=== PATIENT | male | born 1950 | race Caucasian/White ===

== ENCOUNTER 2023-07-09 09:57 | Inpatient (IN) | payer MEDICARE, MEDICAID, SELFPAY ==
[2023-07-09] VITALS (11 sets, daily range): BP systolic 85–113; BP diastolic 45–76; BMI 21.6; BMI 19.0
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
[2023-07-09] MEDS: NSS 1000 IV (07:20)
[2023-07-09] MEDS: DUONEB 3 ML INH ×4 (07:21→19:33)
[2023-07-09 07:32] LABS: % Basophils 0.4 % (0-2); % Eosinophils 2.8 % (0-6); % Immature Granulocytes 0.6 % (0-0.5); % Lymphocytes 14.2 % (20.5-51.1); % Monocytes 15.5 % (1.7-9.3); % Neutrophils 66.5 % (42.2-75.2); Absolute Eosinophils 0.2 10^3/uL (0-0.7); Absolute Monocytes 1.1 10^3/uL (0.1-0.6); Absolute Neutrophils 4.7 10^3/uL (1.4-6.5); Hematocrit 34.6 % (39.0-52.0); Hemoglobin 11.7 g/dL (13.0-18.0); Mean Corp Hgb Conc. 33.8 g/dL (33.0-37.0); Mean Corpuscular Hgb 29.1 pg (27.0-31.0); Mean Corpuscular Volume 86.1 fL (80.0-94.0); Mean Platelet Volume 9.2 fL (7.4-10.4); Nucleated Red Blood Cells % 0 % (-); Platelet Count 319 10^3/uL (130-400); Red Blood Cell Count 4.02 10^6/uL (4.70-6.10); Red Cell Dist. Width 14.6 % (11.5-14.5); White Blood Cell Count 7.1 10^3/uL (4.8-10.8)
[2023-07-09 07:44] LABS: Lactic Acid 0.8 mmol/L (0.7-2.0)
[2023-07-09 07:46] LABS: ALT (SGPT) 91 U/L (0-50); AST (SGOT) 60 U/L (17-59); Albumin 3.2 g/dl (3.5-5.0); Alkaline Phosphatase 405 U/L (38-126); Blood Urea Nitrogen 18 mg/dl (9-20); Calcium 8.6 mg/dl (8.4-10.2); Carbon Dioxide 27 mmol/L (22-30); Chloride 101 mmol/L (98-107); Estimated Creatinine Clearance 76 ml/min; Glucose 94 mg/dl (70-99); Sodium 133 mmol/L (135-145); Total Bilirubin 0.6 mg/dl (0.2-1.3); eGFR > 60.00
[2023-07-09 07:49] LABS: COVID-19 Antigen Negative (Negative)
[2023-07-09 08:13] LABS: Urine Albumin Trace (Neg - Trace); Urine Bilirubin Negative (Negative); Urine Character Clear (Clear); Urine Color Amber; Urine Glucose Negative (Negative); Urine Ketone Negative (Negative); Urine Leukocyte Negative (Negative); Urine Nitrite Negative (Negative); Urine Occult Blood Negative (Negative); Urine Specific Gravity 1.015 (<1.030); Urine Urobilinogen 1+ (Neg - 1+)
[2023-07-09] MEDS: MAXIPIME 1000 MG IV (08:43)
--- NOTE | 2023-07-09 08:59 | HPS.HSE ---
Family Physician
-
Family Physician: Efrem Hernandez
Chief Complaint
-
fevers
History of Present Illness
Ms. Neftaly Robertson is a 72 yo man with hx TBI and seizure disorder, cognitive impairment, COPD, hx rib fracture with complication PTX s/p thoracoscopy and minithoracotomy presents from [facility] to ER with fever and low blood pressure.
Patient currently states that his breathing is Okay after receiving nebulizers in ER. He is unable to provide full history.
Patient is wheelchair bound.
Medical History
Past Medical History
Past Medical History: Reports Other
Additional Past Medical History:
Recurrent Left Pneumothorax
COPD
Chronic Dysphagia
Pulmonary Cachexia
Traumatic Brain Injury
Seizure Disorder
Dysphagia
Arrhythmia
Hyperlipidemia
GERD
BPH
Past Surgical History: Reports Other
Additional Past Surgical History:
Wedge Resection of the [place] of the Left Upper Lobe with Talc Pleurodesis
Kidney Stone
Neurosurgery on head with metal plate at age 9
Social History
Tobacco: Smoker
Living: Alone ([facility])
Family History
Family History: Not pertinent
Allergies / Home Medications
Allergies reflects when Allergies were last updated in [employer].
Home Medications with original date entered in [employer]
Allergy/Medication List:
Allergies
Allergy/AdvReac Type Severity Reaction Status Date / Time
clindamycin Allergy Unknown Verified 07/09/23 07:12
ethambutol Allergy Itching Verified 07/09/23 07:12
levofloxacin Allergy Rash, itchy Verified 07/09/23 07:12
pollen extracts Allergy Seasonal Verified 07/09/23 07:12
Home Medications
albuterol sulfate 90 mcg/actuation aerosol inhaler 2 puff inhalation R Q6HPRN PRN sob/wheezing 02/06/12
alendronate 70 mg tablet 70 mg PO WE osteoporosis 12/03/12
budesonide 0.5 mg/2 mL suspension for nebulization 0.5 mg inhalation R BID Lung/breathing issues 08/05/13
fluticasone propionate 50 mcg/actuation nasal spray,suspension 2 spray intranasal DAILY Allergies 04/10/16
montelukast 10 mg tablet 10 mg PO DAILY Lung/breathing issues 04/10/16
vit A 300 mcg-C 200 mg-E 27 mg-lutein 2 mg and minerals tablet (Ocuvite with Lutein) 1 tab PO BID Supplement 04/14/17
calcium carbonate 500 mg-vitamin D3 5 mcg (200 unit) tablet (Calcium 500 + D) 1 tab PO BID Supplement 07/09/17
ipratropium 0.5 mg-albuterol 3 mg (2.5 mg base)/3 mL nebulization soln 3 ml inhalation R QIDPRN PRN sob/wheezing 10/02/20
primidone 50 mg tablet 200 mg PO DAILY Seizures 04/23/22
phenobarbital 64.8 mg tablet 64.8 mg PO BID@0800,1800 Seizures #10 tabs 04/30/22
gabapentin 100 mg capsule 100 mg PO BID Neurological Condition 09/06/22
rosuvastatin 40 mg tablet (Crestor) 40 mg PO HS High cholesterol 09/06/22
azithromycin 250 mg tablet 250 mg PO MOWEFR Lung/breathing issues 09/15/22
polyethylene glycol 3350 17 gram oral powder packet (HealthyLax) 17 g PO DAILYPRN PRN Constipation #30 ea 12/03/22
tamsulosin 0.4 mg capsule 0.4 mg PO DAILY #30 caps 12/03/22
fluticasone furoate 100 mcg-vilanterol 25 mcg/dose inhalation powder (Breo Ellipta) 1 inh inhalation R DAILY Lung/Breathing Issues 12/07/22
pantoprazole 40 mg tablet,delayed release (Protonix) 40 mg PO DAILY #30 tabs 12/24/22
docusate sodium 100 mg capsule 100 mg PO BID PRN constipation 01/07/23
guaifenesin 200 mg tablet 200 mg PO QID PRN congestion 01/07/23
prednisone 10 mg tablet 10 mg PO DAILY inflammation 01/07/23
sennosides 8.6 mg tablet (Senna Laxative) 17.2 mg PO HS PRN contipation 01/07/23
acetaminophen 325 mg tablet 650 mg PO Q4HPRN PRN mild pain/VIVAS/temp> 100.4F #0 tabs 01/30/23
Review of Systems
-
History Source: Patient
A 12 point ROS was completed and negative except as noted: Yes
Physical Exam
Vital Signs
Vital Signs
Temp Pulse Resp BP Pulse Ox
97.5 F 79 23 92/58 98
07/09/23 06:42 07/09/23 08:00 07/09/23 08:00 07/09/23 08:00 07/09/23 08:00
Physical Exam
General: Conversant and Appears Chronically Ill
HEENT: PERRLA
Respiratory: Wheezes
Cardiac: S1/S2 and Regular Rhythm
GI: Soft and Non Tender
Musculoskeletal: No Edema
Skin: Warm and Dry; No Rash
Neuro: Awake and Alert
Psych: Calm; No Intact Judgment/Insight
Laboratory Results
-
07/09/23 07:15
07/09/23 07:15
Laboratory Results
Lactic Acid Cancelled 07/09/23 11:15
Total Bilirubin 0.6 mg/dl (0.2-1.3) 07/09/23 07:15
AST 60 U/L (17-59) H 07/09/23 07:15
ALT 91 U/L (0-50) H 07/09/23 07:15
Alkaline Phosphatase 405 U/L (38-126) H 07/09/23 07:15
Data Reviewed
-
Diagnostic Radiology: Report Reviewed by me
Lab Data: Labs Reviewed by me
Impression/Plan
-
Ms. Neftaly Robertson is a 72 yo man with hx TBI and seizure disorder, cognitive impairment, COPD, hx rib fracture with complication PTX s/p thoracoscopy and minithoracotomy presents from [facility] to ER with fever and low blood pressure.
Triage VS: T 97.5, P 85, RR 20, BP 99/55, SpO2 92%
LABS: WBC 7.1, Hg 11.7, PLT 319, Na 133, K+ 4.0, Cr 0.8, Glucose 94, T. Bili 0.6, AST 60, ALT 91, Alk Phos 405, lactate 0.8
covid negative, flu negative
CXR
IMPRESSION:
Hyperexpanded lungs compatible with underlying COPD/emphysema. Compared to prior x-rays, there is interval worsening of irregular airspace disease within the left upper and midlung, which could represent infectious or inflammatory finding
superimposed upon chronic disease. The prior CT from 12/31/2022, showed a thick-walled cavitary lesion within this region which likely persists. A neoplastic component cannot be entirely excluded.
MAR: Vanc/Cefepime/Duonebs/ IVF
Hypoxic Respiratory insufficiency
Community Acquired Pneumonia
COPD, acute exacerbation
-admit to telemetry
-s/p vanc/cefepime in ER; will narrow to Ceftriaxone/Doxy
-s/p 1L fluids in ER, patient with JVP, hold off on running fluids given not septic; bolus PRN hypotension
-IV Decadron
-standing nebs and nebs PRN
-ANNEALING OVEN OPERATOR inhalers, montelukast
-Mucinex
-patient is on prednisone 10mg PO QD at home, hold while on higher dose steroids - will need eventual taper down
chronic Abnormal chest x-ray
-patient with chronic masslike opacity left lower lobe since 10/07. Seen by pulmonary in December, PET recommended. Unclear if he would be a candidate for therapy if malignant
-will need follow up outpatient imaging
Elevated Alk phos
-no abdominal pain
-obtain US
Hx TBI
Seizure Disorder
-ANNEALING OVEN OPERATOR Phenobarbital and Primidone (give now)
Chronic dysphagia
-ST consult
-DYS 6 diet
HLD
-hold statin with elevated alk phos for now
BPH
-ANNEALING OVEN OPERATOR Flomax
DVT PPx lovenox subQ
patient is wheelchair bound
DNR - in NH orders and confirmed with sister on admission
[2023-07-09] MEDS: VANCOCIN 300 MG IV (09:15)
[2023-07-09] MEDS: VANCOCIN 300 ML IV (09:15)
--- NOTE | 2023-07-09 10:05 | CM ---
Patient from [facility] and appears to be LTC there. CM called to Radha at [facility] admissions and requested update regarding patient status at SNF and functional status. CM will continue to follow for discharge planning needs.
Plan; return to SNF; pending confirmation of status.
[2023-07-09] MEDS: MYSOLINE 200 MG PO (11:04)
[2023-07-09] MEDS: DECADRON 4 MG IV ×2 (11:06→19:14)
[2023-07-09] MEDS: LUMINAL 64.7999999999999972 MG PO ×2 (11:20→22:19)
[2023-07-09] MEDS: PULMICORT 0.5 MG INH (12:57)
[2023-07-09] MEDS: PULMICORT INH (13:05)
--- NOTE | 2023-07-09 14:21 | PTOTSP ---
SPEECH THERAPY SWALLOW EVALUATION:
Patient presents with clinical signs of oropharyngeal dysphagia, likely chronic related to history of TBI and related dysphagia. Patient remains at risk for aspiration and related complications given cognitive impairments/confusion, oral hygiene,
current pulmonary status (current pneumonia), and COPD/GERD. Recommend Videofluoroscopic Swallowing Study to further assess current swallow physiology. Given chronicity of dysphagia, patient appears safe to continue oral diet of baseline IDDSI Level
6 Soft and Bite sized diet with Moderately-thick liquids with strict aspiration precautions in place until VSE. Medications crushed in puree. Aspiration precautions includin:1 assist / 100% supervision with meals, small single sips/bites, slow
rate of intake, only provide p.o. if RR<30 and SpO2>90%, oral care 3-5x/day. Speech therapy to follow, assess diet tolerance and modify as appropriate, provide education/caregiver education regarding aspiration risks/precautions, and provide further
recommendations following VSE procedure. Discussed with patient, RN, and Dr. Shelley.
RECOMMEND:
1) Videofluoroscopic Swallowing Study
2) IDDSI Level 6 Soft and Bite sized diet with Moderately-thick liquids
3) Medications crushed in puree
4) Aspiration precautions includin:1 assist / 100% supervision with meals, small single sips/bites, slow rate of intake, only provide p.o. if RR<30 and SpO2>90%, oral care 3-5x/day
5) Speech therapy to follow, assess diet tolerance and modify as appropriate, provide education/caregiver education regarding aspiration risks/precautions, and provide further recommendations following VSE procedure
[2023-07-09] MEDS: PROTONIX 40 MG PO (14:27)
[2023-07-09] MEDS: MUCINEX 600 MG PO ×2 (14:27→22:20)
[2023-07-09] MEDS: VIBRAMYCIN 100 MG PO ×2 (14:27→22:20)
[2023-07-09] MEDS: COLACE 100 MG PO ×2 (14:27→22:20)
[2023-07-09] MEDS: SINGULAIR 10 MG PO (14:28)
[2023-07-09] MEDS: NEURONTIN 100 MG PO ×2 (14:28→22:20)
--- NOTE | 2023-07-09 15:19 | PTCARENOTE ---
Pt arrived to floor from ED via stretcher. Pt transferred over to bed by staff. AAOx3. Forgetful. Slow speech. Pt with history of TBI. Generalized weakness. Pt states he is wheelchair bound and needs complete transfer to bed and wheelchair at
baseline. SaO2 96% on 2L NC. Breath sounds diminished with crackles throughout. Sinus rhythm on surveillance system monitor. Trace pitting LE edema. Incontinent of a smear of loose stool. Voiding marco into urinal.
[2023-07-09] MEDS: ROCEPHIN 1000 MG IV (16:48)
[2023-07-09] MEDS: STERILE WATER FOR INJECTION 10 ML IV (16:48)
[2023-07-09] MEDS: LOVENOX 40 MG SC (17:14)
[2023-07-09] MEDS: SYMBICORT 80/4.5 MCG INHALER 2 PUFF INH (19:33)
[2023-07-10] VITALS (8 sets, daily range): BP systolic 91–112; BP diastolic 50–84; PULSE 88–90; O2SAT 94
[2023-07-10] MEDS: DECADRON 4 MG IV ×3 (04:02→18:01)
[2023-07-10 05:39] LABS: % Basophils 0.4 % (0-2); % Eosinophils 2.6 % (0-6); % Immature Granulocytes 0.8 % (0-0.5); % Lymphocytes 15.7 % (20.5-51.1); % Monocytes 14.7 % (1.7-9.3); % Neutrophils 65.8 % (42.2-75.2); Absolute Eosinophils 0.1 10^3/uL (0-0.7); Absolute Lymphocytes 0.8 10^3/uL (1.2-3.4); Absolute Monocytes 0.7 10^3/uL (0.1-0.6); Absolute Neutrophils 3.2 10^3/uL (1.4-6.5); Hematocrit 33.7 % (39.0-52.0); Mean Corp Hgb Conc. 32.6 g/dL (33.0-37.0); Mean Corpuscular Hgb 28.9 pg (27.0-31.0); Mean Corpuscular Volume 88.5 fL (80.0-94.0); Mean Platelet Volume 8.9 fL (7.4-10.4); Nucleated Red Blood Cells % 0 % (-); Platelet Count 286 10^3/uL (130-400); Red Blood Cell Count 3.81 10^6/uL (4.70-6.10); Red Cell Dist. Width 14.5 % (11.5-14.5); White Blood Cell Count 4.9 10^3/uL (4.8-10.8)
[2023-07-10 05:50] LABS: Blood Urea Nitrogen 16 mg/dl (9-20); Calcium 8.4 mg/dl (8.4-10.2); Carbon Dioxide 29 mmol/L (22-30); Chloride 102 mmol/L (98-107); Estimated Creatinine Clearance 76 ml/min; Glucose 98 mg/dl (70-99); Potassium 3.8 mmol/L (3.5-5.1); Sodium 133 mmol/L (135-145); eGFR > 60.00
[2023-07-10] MEDS: SYMBICORT 80/4.5 MCG INHALER 2 PUFF INH ×2 (07:31→19:46)
[2023-07-10] MEDS: DUONEB 3 ML INH ×4 (07:31→19:46)
[2023-07-10] MEDS: NEURONTIN 100 MG PO ×2 (08:00→20:21)
[2023-07-10] MEDS: MYSOLINE 200 MG PO (08:00)
[2023-07-10] MEDS: FLOMAX 0.400000000000000022 MG PO (08:01)
[2023-07-10] MEDS: MUCINEX 600 MG PO ×2 (08:01→20:21)
[2023-07-10] MEDS: PROTONIX 40 MG PO (08:01)
[2023-07-10] MEDS: SINGULAIR 10 MG PO (08:01)
[2023-07-10] MEDS: VIBRAMYCIN 100 MG PO ×2 (08:01→20:21)
[2023-07-10] MEDS: COLACE 100 MG PO ×2 (08:01→20:21)
--- NOTE | 2023-07-10 09:40 | W.PN.HOSP.TC ---
Today's Communication/Plan
-
lung exam improved
wean off oxygen as able
IV Ceftriaxone/Doxy
IV Decadron
Assessment / Plan
Assessment / Plan
Ms. Neftaly Robertson is a 72 yo man with hx TBI and seizure disorder, cognitive impairment, COPD, hx rib fracture with complication PTX s/p thoracoscopy and minithoracotomy presents from [facility] to ER with fever and low blood pressure.
CXR
IMPRESSION:
Hyperexpanded lungs compatible with underlying COPD/emphysema. Compared to prior x-rays, there is interval worsening of irregular airspace disease within the left upper and midlung, which could represent infectious or inflammatory finding
superimposed upon chronic disease. The prior CT from 12/31/2022, showed a thick-walled cavitary lesion within this region which likely persists. A neoplastic component cannot be entirely excluded.
RUQ US
IMPRESSION:
No acute hepatobiliary abnormalities.
Atrophic right
Mild dilation of the distal abdominal aorta measuring up to 3.1 cm
Hypoxic Respiratory insufficiency
Community Acquired Pneumonia
COPD, acute exacerbation
-admitted to telemetry
-s/p vanc/cefepime in ER; will narrow to Ceftriaxone/Doxy
-s/p 1L fluids in ER, patient with JVP, hold off on running fluids given not septic; bolus PRN hypotension
-IV Decadron
-standing nebs and nebs PRN
-SEEDLING PULLER inhalers, montelukast
-Mucinex
-patient is on prednisone 10mg PO QD at home, hold while on higher dose steroids - will need eventual taper down
Low/normal BP
-patient tends to run low based on prior readings
chronic Abnormal chest x-ray
-patient with chronic masslike opacity left lower lobe since 10/07.� Seen by pulmonary in December, PET recommended.� Unclear if he would be a candidate for therapy if malignant
-will need follow up outpatient imaging
Elevated Alk phos
-no abdominal pain
-obtain US - NO acute abnormalities
-repeat liver enzymes today - improving
Hx TBI
Seizure Disorder
-SEEDLING PULLER Phenobarbital and Primidone
Chronic dysphagia
-ST consult appreciated
-VSE ordered --> DYS 5 diet with moderately thick liquids
HLD
-hold statin with elevated alk phos for now
BPH
-SEEDLING PULLER Flomax
DVT PPx lovenox subQ
patient is wheelchair bound
DNR - in NH orders and confirmed with sister on admission
.
Anticipated Discharge: 24 - 48 hours
Subjective/Interval History
-
Date of Service: July 10, 2023
patient states he is feeling ok
no fevers since yesterday
Objective Data
-
Labs:
Laboratory Results
07/10/23
05:23
WBC 4.9
Hgb 11.0 L
Hct 33.7 L
Plt Count 286
Sodium 133 L
Potassium 3.8
Chloride 102
Carbon Dioxide 29
BUN 16
Creatinine 0.7
Glucose 98
Calcium 8.4
Vital Signs:
Vital Signs
Temp Pulse Resp BP Pulse Ox
98.0 F 70 18 97/74 98
07/10/23 07:00 07/10/23 08:10 07/10/23 08:10 07/10/23 07:00 07/10/23 08:10
I&O
07/09/23 07/10/23 07/11/23
06:59 06:59 06:59
Intake Total 360 / 360
Output Total 175 / 175
Balance 185 / 185
Review of Systems
-
History Source: Patient
All other systems: Reviewed and negative
Physical Exam
-
General: Well Developed, Well Nourished and No Apparent Distress
HEENT: Normocephalic and Atraumatic
Respiratory: Clear to Auscultation; Negative Wheezes or Rhonchi
Cardiac: Regular Rhythm and S1/S2; Negative Murmur
GI: Soft, Nontender, Nondistended and Normal Bowel Sounds
Musculoskeletal: No Clubbing, No Cyanosis and No Edema
Neuro: Awake
Psych: Calm
Data Reviewed
-
Diagnostic Radiology: Report Reviewed by me
Labs: Labs Reviewed by me
--- NOTE | 2023-07-10 10:09 | PN.CDI ---
CDI
- -
CDI:
Physician Documentation Request
Admit Date: 07/09/23 09:57
Dear Doctor Daphney,
Patient admitted for pneumonia and AECOPD.
07/09 Nursing Documentation: 'Stage 2 pressure ulcer right buttock'
Physician documentation of the type and location of wounds is required for compliant documentation. Based on the above clinical findings and your assessment, please provide the following in your progress note:
1. Location of the ulcer/wound, including laterality.
2. Type (etiology) of ulcer/wound:
- Pressure (decubitus) ulcer
- Other
- Unable to determine
3. If a pressure ulcer, please also include the stage* of the ulcer:
- Stage 1 - Skin intact, non-blanchable redness
- Stage 2 - Partial thickness loss of dermis, includes intact or open blister
- Stage 3 - Full thickness tissue not including bone, tendon or muscle
- Stage 4 - Full thickness tissue loss, including exposed bone, tendon or muscle
- Unstageable - Full thickness loss in which the base of the ulcer is covered by slough (yellow, abad, lagunas, green or brown) and/or eschar (abad, brown or black) in the wound bed.
- Unable to determine
Use of terms such as suspected, likely, concern for, or probable (associated with a specific diagnosis that is being evaluated, monitored, or treated as if it exists) are acceptable and can be coded in the inpatient setting, when documented at the
time of discharge.
Thank you,
Ana Colbert RN, BSN
CDI Specialist
Available via [employer] text
Please use your independent medical judgment in providing your response.
*Source: National Pressure Ulcer Advisory Panel (NPUAP)
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
[2023-07-10 10:32] LABS: AST (SGOT) 56 U/L (17-59); Alkaline Phosphatase 367 U/L (38-126); Total Bilirubin 0.5 mg/dl (0.2-1.3)
[2023-07-10 11:08] LABS: ALT (SGPT) 79 U/L (0-50)
[2023-07-10] MEDS: LUMINAL 64.7999999999999972 MG PO ×2 (11:24→22:36)
--- NOTE | 2023-07-10 13:00 | PTOTSP ---
Video Swallow Examination
Patient presents with mild oral and moderate-severe pharyngeal dysphagia. Patient had aspiration due to delayed/incomplete closure of the larynx which was silent (no cough) with thin liquids via cup (cleared with a cued cough) and claritza/silent with
mildly thick liquids via cup (which did not clear with a cued cough.) Patient had moderate vallecular retention with solids, minimally reduced with secondary swallows, and reduced to mild amounts with a moderately thick liquid wash (but this was
penetrated and did not clear upper laryngeal space.) See patient care note for further details.
Patient has chronic dysphagia and is at a chronic elevated risk for aspiration. Consider compensations and precautions below:
1. IDDSI Level 5 (Minced and Moist), IDDSI Level 3 (Moderately Thick Liquids)
2. Medications - crushed in puree (applesauce) if medically cleared to do so
3. FULL supervision, assistance to use strategies
4. Strategies: small single sips/bites, slow rate, multiple swallows (to help clear food from throat), cough if voice is wet/gurgly, remain upright for 30 minutes after PO intake as a reflux precaution, oral care 3-5x daily to reduce risk for
complications from aspiration of oral bacteria
6. Continued dysphagia tx warranted at the acute care level for patient/family education and instruction in compensations.
[2023-07-10] MEDS: ROCEPHIN 1000 MG IV (15:22)
[2023-07-10] MEDS: STERILE WATER FOR INJECTION 10 ML IV (15:22)
[2023-07-10] MEDS: LOVENOX 40 MG SC (18:01)
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
[2023-07-10] MEDS: HYDROPHOR 1 APPLIC TOPICAL (20:21)
[2023-07-11] MEDS: DECADRON 4 MG IV (03:03)
[2023-07-11 03:30] VITALS: BP 106/64
[2023-07-11 06:37] LABS: ALT (SGPT) 79 U/L (0-50); AST (SGOT) 49 U/L (17-59); Albumin 3.6 g/dl (3.5-5.0); Alkaline Phosphatase 355 U/L (38-126); Blood Urea Nitrogen 20 mg/dl (9-20); Calcium 9.1 mg/dl (8.4-10.2); Carbon Dioxide 27 mmol/L (22-30); Chloride 102 mmol/L (98-107); Estimated Creatinine Clearance 89 ml/min; Glucose 95 mg/dl (70-99); Potassium 4.7 mmol/L (3.5-5.1); Sodium 136 mmol/L (135-145); Total Bilirubin 0.5 mg/dl (0.2-1.3); Total Protein 7.7 g/dl (6.3-8.2); eGFR > 60.00
[2023-07-11 07:00] VITALS: BP 127/99
[2023-07-11] MEDS: DUONEB 3 ML INH ×3 (08:12→15:04)
[2023-07-11] MEDS: SYMBICORT 80/4.5 MCG INHALER 2 PUFF INH (08:12)
[2023-07-11] MEDS: FLOMAX 0.400000000000000022 MG PO (09:14)
[2023-07-11] MEDS: PROTONIX 40 MG PO (09:14)
[2023-07-11] MEDS: MYSOLINE 200 MG PO (09:14)
[2023-07-11] MEDS: COLACE 100 MG PO (09:14)
[2023-07-11] MEDS: HYDROPHOR 1 APPLIC TOPICAL (09:15)
[2023-07-11] MEDS: SINGULAIR 10 MG PO (09:15)
[2023-07-11] MEDS: MUCINEX 600 MG PO (09:15)
[2023-07-11] MEDS: VIBRAMYCIN 100 MG PO (09:15)
[2023-07-11] MEDS: NEURONTIN 100 MG PO (09:15)
--- NOTE | 2023-07-11 09:51 | W.PN.HOSP.TC ---
Addendum entered and electronically signed by Rosita Shelley MD 07/11/23 13:21:
Stage 2 pressure ulcer right buttock
appreciate wound care
Original Note:
Today's Communication/Plan
-
Ok for DC today
Assessment / Plan
Assessment / Plan
Ms. Neftaly Robertson is a 72 yo man with hx TBI and seizure disorder, cognitive impairment, COPD, hx rib fracture with complication PTX s/p thoracoscopy and minithoracotomy presents from [facility] to ER with fever and low blood pressure.
CXR
IMPRESSION:
Hyperexpanded lungs compatible with underlying COPD/emphysema. Compared to prior x-rays, there is interval worsening of irregular airspace disease within the left upper and midlung, which could represent infectious or inflammatory finding
superimposed upon chronic disease. The prior CT from 12/31/2022, showed a thick-walled cavitary lesion within this region which likely persists. A neoplastic component cannot be entirely excluded.
RUQ US
IMPRESSION:
No acute hepatobiliary abnormalities.
Atrophic right
Mild dilation of the distal abdominal aorta measuring up to 3.1 cm
Hypoxic Respiratory insufficiency
Community Acquired Pneumonia
COPD, acute exacerbation
-admitted to telemetry
-s/p vanc/cefepime in ER; narrowed to Ceftriaxone/Doxy - day 3 antibiotics; will give one more dose IV then transition to 2 days oral
-s/p 1L fluids in ER, patient with JVP, hold off on running fluids given not septic; bolus PRN hypotension
-IV Decadron --> transition to prednisone (with taper to home dose)
-standing nebs and nebs PRN
-TR[employer]ING [employer] inhalers, montelukast
-Mucinex
-patient is on prednisone 10mg PO QD at home
Low/normal BP
-patient tends to run low based on prior readings
chronic Abnormal chest x-ray
-patient with chronic masslike opacity left lower lobe since 05/23.� Seen by pulmonary in December, PET recommended.� Unclear if he would be a candidate for therapy if malignant
-will need follow up outpatient imaging
Elevated Alk phos
-no abdominal pain
-obtain US - NO acute abnormalities
-repeat liver enzymes today - improving
-repeat as outpatient
Hx TBI
Seizure Disorder
-TRIM[employer] Phenobarbital and Primidone
Chronic dysphagia
-ST consult appreciated
-VSE ordered --> DYS 5 diet with moderately thick liquids
HLD
-hold statin with elevated alk phos for now
BPH
-TRIMM[employer] C[employer] Flomax
DVT PPx lovenox subQ
patient is wheelchair bound
DNR - in MA orders and confirmed with sister on admission
.
Anticipated Discharge: Today
Subjective/Interval History
-
Date of Service: July 11, 2023
patient is off oxygen
no new complaints
Objective Data
-
Labs:
Laboratory Results
07/11/23
05:47
Sodium 136
Potassium 4.7
Chloride 102
Carbon Dioxide 27
BUN 20
Creatinine 0.6 L
Glucose 95
Calcium 9.1
Total Bilirubin 0.5
AST 49
ALT 79 H
Alkaline Phosphatase 355 H
Vital Signs:
Vital Signs
Temp Pulse Resp BP Pulse Ox
97.5 F 72 16 127/99 92
07/11/23 07:00 07/11/23 08:20 07/11/23 08:20 07/11/23 07:00 07/11/23 08:20
I&O
07/10/23 07/11/23 07/12/23
06:59 06:59 06:59
Intake Total 360 / 360 580 / 580
Output Total 175 / 175 1550 / 1550
Balance 185 / 185 -970 / -970
Review of Systems
-
History Source: Patient
All other systems: Reviewed and negative
Physical Exam
-
General: Well Developed, Well Nourished and No Apparent Distress
HEENT: Normocephalic and Atraumatic
Respiratory: Clear to Auscultation; Negative Wheezes or Rhonchi
Cardiac: Regular Rhythm and S1/S2; Negative Murmur
GI: Soft, Nontender, Nondistended and Normal Bowel Sounds
Musculoskeletal: No Clubbing, No Cyanosis and No Edema
Neuro: Awake
Psych: Calm
Data Reviewed
-
Diagnostic Radiology: Report Reviewed by me
Labs: Labs Reviewed by me
--- NOTE | 2023-07-11 10:23 | W.DS.TRANS ---
DC Summary - Education Specialist
-
Discharge Instructions:
Sleep Apnea Risk Low
Discharge Diagnosis/Procedures community acquired pneumonia, COPD exacerbation
Diet Other diet
Additional Diets
1. IDDSI Level 5 (Minced and Moist), IDDSI Level
3 (Moderately Thick Liquids)
2. Medications - crushed in puree (applesauce)
if medically cleared to do so
3. FULL supervision, assistance to use
strategies
Activity As tolerated
Driving Restrictions No driving
Bathing Restrictions None
Blood Work CMP IN 4 DAYS - MONITOR ALKALINE PHOSPHATASE
Other Services VN,PT
Stop these medications: STATIN HELD UNTIL WE SEE LIVER ENZYMES IMPROVE
Instructions:
Stand-Alone Forms:
Changes to Home Medications: Yes
Discharge Medications:
DC Medications w/original date entered in [employer]
alendronate 70 mg tablet 70 mg PO WE osteoporosis 12/03/12
budesonide 0.5 mg/2 mL suspension for nebulization 0.5 mg inhalation R BID Lung/breathing issues 08/05/13
montelukast 10 mg tablet 10 mg PO DAILY Lung/breathing issues 04/10/16
vit A 300 mcg-C 200 mg-E 27 mg-lutein 2 mg and minerals tablet (Ocuvite with Lutein) 1 tab PO BID Supplement 04/14/17
primidone 50 mg tablet 200 mg PO DAILY Seizures 04/23/22
gabapentin 100 mg capsule 100 mg PO BID Neurological Condition 09/06/22
rosuvastatin 40 mg tablet (Crestor) 40 mg PO HS High cholesterol 09/06/22
azithromycin 250 mg tablet 250 mg PO MOWEFR Lung/breathing issues 09/15/22
polyethylene glycol 3350 17 gram oral powder packet (HealthyLax) 17 g PO DAILYPRN PRN Constipation #30 ea 12/03/22
fluticasone furoate 100 mcg-vilanterol 25 mcg/dose inhalation powder (Breo Ellipta) 1 inh inhalation R DAILY Lung/Breathing Issues 12/07/22
pantoprazole 40 mg tablet,delayed release (Protonix) 40 mg PO DAILY #30 tabs 08/09/23
docusate sodium 100 mg capsule 100 mg PO BID constipation 01/07/23
guaifenesin 200 mg tablet 200 mg PO Q6HPRN PRN cough 01/07/23
prednisone 10 mg tablet 10 mg PO DAILY inflammation 01/07/23
sennosides 8.6 mg tablet (Senna Laxative) 17.2 mg PO DAILYPRN PRN contipation 01/07/23
acetaminophen 325 mg tablet 650 mg PO Q6HPRN PRN mild pain/temp>100 07/09/23
albuterol sulfate 90 mcg/actuation aerosol inhaler 2 puff inhalation R Q6HPRN PRN copd 07/09/23
bisacodyl 10 mg rectal suppository (Dulcolax (bisacodyl)) 10 mg WI DAILY PRN if MOM ineffective 07/09/23
calcium carbonate 500 mg-vitamin D3 5 mcg (200 unit) tablet 1 tab PO BID Supplement 07/09/23
fluticasone propionate 50 mcg/actuation nasal spray,suspension 2 spray intranasal DAILY Allergies 07/09/23
ipratropium 0.5 mg-albuterol 3 mg (2.5 mg base)/3 mL nebulization soln 3 ml inhalation R Q6 Lung/Breathing Issues 07/09/23
magnesium hydroxide 400 mg/5 mL oral suspension (Milk of Magnesia) 30 ml PO DAILY PRN if no BM x 3 days 07/09/23
phenobarbital 64.8 mg tablet 64.8 mg PO Q12H Seizures 07/09/23
sodium phosphates 19 gram-7 gram/118 mL enema (Fleet Enema) 118 ml [place] DAILYPRN PRN if dulcolax supp ineffective 07/09/23
tamsulosin 0.4 mg capsule (Flomax) 0.4 mg PO DAILY Urinary Issue 07/09/23
zinc oxide 10 % topical cream 1 applic topical DAILY apply to sacrum 07/09/23
cefdinir 300 mg capsule 300 mg PO Q12 #6 caps 07/11/23
doxycycline hyclate 100 mg capsule 100 mg PO Q12 #7 caps 07/11/23
prednisone 20 mg tablet 40 mg PO DAILY #30 tabs 07/11/23
white petrolatum 42 % topical ointment (Hydrophor) 1 applic topical BID #100 grams 07/11/23
Home Medication Changes
prenidsone taper (resume 10mg dosing post taper)
3 more days cefdinir/doxy
Pending Results: No
[2023-07-11] MEDS: DELTASONE 20 MG PO (10:43)
[2023-07-11] MEDS: ROCEPHIN 1000 MG IV (10:43)
[2023-07-11] MEDS: STERILE WATER FOR INJECTION 10 ML IV (10:43)
--- NOTE | 2023-07-11 10:43 | CM ---
CM following re: discharge planning.
Reviewed pt's chart, met with pt and spoke to pt's sister Rebekah over the phone to update on discharge plan progress.
Discharge order noted. Both pt and his sister Rebekah are aware, expressed their agreement with discharge. IMM reviewed, placed in chart, pt has a copy.
Pt is a senior living care resident at [facility] and requires total care. CM spoke to [facility] liaison and she confirmed that pt is accepted for admission to [facility] today.
to arrange transportation BLS. [facility]NC completed and left with [facility] nursing report: [phone]
Discharge instructions fax: [phone]
D/C plan: return back to [facility] for a senior living care. Pt might receive PT/OT under Medicare part B if recommended.
No other discharge needs identified.
[2023-07-11] MEDS: LUMINAL 64.7999999999999972 MG PO (10:44)
[2023-07-11 11:00] VITALS: BP 98/70
--- NOTE | 2023-07-11 12:56 | W.DCSUMMARY ---
Discharge Summary
Discharge Data
Date of Admission: 07/09/23
Date of Discharge: 07/11/23
-
Pending Results: No
Hospital Course
Discharging Physician : Dr. Rosita Shelley
Disposition : Home with Home Health
Primary care physician : Dr. Efrem Hernandez
Principal Discharge diagnosis : community acquired pneumonia, COPD exacerbation
Hospital Course :
Ms. Neftaly Robertson is a 72 yo man with hx TBI and seizure disorder, cognitive impairment, COPD, hx rib fracture with complication PTX s/p thoracoscopy and minithoracotomy presents from [facility] to ER with fever and low blood pressure. Triage
vitals significant for BP 99/55, he required supplemental O2. Labs without leukocytosis. Flu and covid negative. CXR with superimposed infection on chronic disease (see report below). He was admitted for treatment of CAP and COPD exacerbation.
His blood pressure remained stable s/p mild fluid resuscitation. He improved on Ceftriaxone/Doxy and IV Decadron treatment. Patient is discharged on 3 more days oral antibiotics and prednisone taper back to home 10mg PO QD dosing.
Patient with known chronic abnormal lung imaging with masslike opacity. Unclear if he has had PET as outpatient or if that would be within goals of care - to be followed by PCP.
Patient had a VSE during hospitalization and modified diet recommended: IDDSI Level 5 (Minced and Moist), IDDSI Level 3 (Moderately Thick Liquids)
Time spent on discharge was 32 minutes.
Important imaging findings :
CXR
IMPRESSION:
Hyperexpanded lungs compatible with underlying COPD/emphysema. Compared to prior x-rays, there is interval worsening of irregular airspace disease within the left upper and midlung, which could represent infectious or inflammatory finding
superimposed upon chronic disease. The prior CT from 12/31/2022, showed a thick-walled cavitary lesion within this region which likely persists. A neoplastic component cannot be entirely excluded.
Procedure findings :
Discharge Plan
-
Patient Disposition: Home with Home Care
Discharge Diagnosis/Procedures: community acquired pneumonia, COPD exacerbation
Diet: Other diet
Additional Diets:
1. IDDSI Level 5 (Minced and Moist), IDDSI Level 3 (Moderately Thick Liquids)
2. Medications - crushed in puree (applesauce) if medically cleared to do so
3. FULL supervision, assistance to use strategies
Activity: As tolerated
Driving Restrictions: No driving
Bathing Restrictions: None
Blood Work: CMP IN 4 DAYS - MONITOR ALKALINE PHOSPHATASE
Other Services: VN and PT
Stop these medications:: STATIN HELD UNTIL WE SEE LIVER ENZYMES IMPROVE
Activity Restrictions/Additional Instructions:
Wound Care Instructions
Make appointment with dermatology for skin scratching.
Sacrum-clean with saline or soap and water, silicone border foam, change q 2 days and prn loosened dressing. If foam ineffective, apply zinc barrier ointment BID instead.
Aquaphor ointment to dry skin, affected areas bid.
Pressure redistributing chair cushion (i.e. Air chair cushion).
Prednisone taper: Take 40mg (2 tabs) x 3 days; 30mg (1.5 tabs) x 3 days; 20mg (1 tab) x 3 days then resume home 10mg daily
You have 3 more days of antibiotics to complete treatment for pneumonia
Hold Statin until told to resume by physician
Referrals:
Efrem Hernandez MD [Family Provider] - in less than 1 week
Prescriptions:
New
prednisone 20 mg Tablet
40 mg PO DAILY Qty: 30 0RF
Rx Instructions:
Take 40mg (2 tabs) x 3 days; 30mg (1.5 tabs) x 3 days; 20mg (1 tab) x 3 days then resume home 10mg daily
white petrolatum [Hydrophor] 42 % Ointment
1 applic topical BID Qty: 100 0RF
doxycycline hyclate 100 mg Capsule
100 mg PO Q12 Qty: 7 0RF
cefdinir 300 mg Capsule
300 mg PO Q12 Qty: 6 0RF
Continued
alendronate 70 MG tablet
70 mg PO WE
budesonide 0.5 MG/2 ML suspension for nebulization
0.5 mg inhalation R BID
montelukast 10 MG tablet
10 mg PO DAILY
Ocuvite with Lutein 1 EACH tablet
1 tab PO BID
primidone 50 mg tablet
200 mg PO DAILY
gabapentin 100 mg Capsule
100 mg PO BID
azithromycin 250 mg Tablet
250 mg PO MOWEFR
polyethylene glycol 3350 [HealthyLax] 17 gram Powder In Packet
17 g PO DAILYPRN PRN (Reason: Constipation) Qty: 30 0RF
fluticasone furoate-vilanterol [Breo Ellipta] 100-25 mcg/dose Blister With Device
1 inh INHALATION R DAILY
pantoprazole [Protonix] 40 mg tablet,delayed release (DR/EC)
40 mg PO DAILY Qty: 30 1RF
guaifenesin 200 mg Tablet
200 mg PO Q6HPRN PRN (Reason: cough)
sennosides [Senna Laxative] 8.6 mg tablet
17.2 mg PO DAILYPRN PRN (Reason: contipation)
docusate sodium 100 mg capsule
100 mg PO BID
ipratropium-albuterol 0.5 mg-3 mg(2.5 mg base)/3 mL Solution For Nebulization
3 ml INHALATION R Q6
Rx Instructions:
07/09/2023, Q6H.
magnesium hydroxide [Milk of Magnesia] 400 mg/5 mL Suspension
30 ml PO DAILY PRN (Reason: if no BM x 3 days)
tamsulosin [Flomax] 0.4 mg Capsule
0.4 mg PO DAILY
bisacodyl [Dulcolax (bisacodyl)] 10 mg Suppository
10 mg OH DAILY PRN (Reason: if MOM ineffective)
Fleet Enema 19-7 gram/118 mL Enema
118 ml [place] DAILYPRN PRN (Reason: if dulcolax supp ineffective)
albuterol sulfate 90 mcg/actuation Hfa Aerosol Inhaler
2 puff INHALATION R Q6HPRN PRN (Reason: copd)
fluticasone propionate 50 mcg/actuation [place],Suspension
2 spray INTRANASAL DAILY
zinc oxide 10 % Cream
1 applic TOPICAL DAILY
calcium carbonate-vitamin D3 500 mg-5 mcg (200 unit) Tablet
1 tab PO BID
acetaminophen 325 mg tablet
650 mg PO Q6HPRN MDD 3000 mg PRN (Reason: mild pain/temp>100)
phenobarbital 64.8 MG tablet
64.8 mg PO Q12H
Patient Comments:
: last filled 10/29/22, 60 tabs
Held
rosuvastatin [Crestor] 40 mg Tablet
40 mg PO HS
Hold Instructions: Resume on 07/15/23.
prednisone 10 mg tablet
10 mg PO DAILY
Hold Instructions: Resume on 07/20/23. resume after complete steroid taper
Discharge Orders:
Discharge Patient (As Directed); Ordered 07/11/23
Ordered By: Rosita Shelley
[2023-07-11 15:00] VITALS: BP 98/64
== END 2023-07-11 17:22 | disposition home health service (06) | DRG 190 ==
LOC: 3 WEST ACU 09:57
PROVIDERS: ADMITTING PHYSICIAN Student in an Organized Health Care Education/Training Program; EMERGENCY PHYSICIAN Emergency Medicine; FAMILY PHYSICIAN Internal Medicine
DX: J44.1 Chronic obstructive pulmonary disease with (acute) exacerbation (principal); J18.9 Pneumonia, unspecified organism; R64 Cachexia; Z68.1 Body mass index [BMI] 19.9 or less, adult; J44.0 Chronic obstructive pulmonary disease with (acute) lower respiratory infection; Z99.3 Dependence on wheelchair; F17.200 Nicotine dependence, unspecified, uncomplicated; J43.9 Emphysema, unspecified; R09.02 Hypoxemia; R06.89 Other abnormalities of breathing; I95.9 Hypotension, unspecified; Z66 Do not resuscitate; E78.00 Pure hypercholesterolemia, unspecified; L89.312 Pressure ulcer of right buttock, stage 2; Z11.52 Encounter for screening for COVID-19
CPT/HCPCS: 51701; 71045; 74230; 76700; 80048; 80053; 80184; 81003; 82247; 83605; 84075; 84450; 84460; 85025; 87040; 87502; 87811; 92610; 92611; 93005; 94640; 96361; 96365; 96366; 96375; 97163; 97166; 99285

== ENCOUNTER 2023-10-02 15:17 | Inpatient (IN) | payer MEDICARE, OTHER, SELFPAY ==
[2023-10-02] VITALS (19 sets, daily range): BP systolic 76–123; BP diastolic 41–61; BMI 21.3; BMI 21.4
[2023-10-02] MEDS: NSS 500 IV ×2 (12:42→13:13)
[2023-10-02 12:46] LABS: % Basophils 0.3 % (0-2); % Eosinophils 0.5 % (0-6); % Immature Granulocytes 0.6 % (0-0.5); % Monocytes 10.4 % (1.7-9.3); % Neutrophils 82.2 % (42.2-75.2); Absolute Eosinophils 0.1 10^3/uL (0-0.7); Absolute Immature Granulocytes 0.1 10^3/uL (0-0.05); Absolute Lymphocytes 0.9 10^3/uL (1.2-3.4); Absolute Monocytes 1.6 10^3/uL (0.1-0.6); Absolute Neutrophils 12.3 10^3/uL (1.4-6.5); Hematocrit 30.1 % (39.0-52.0); Hemoglobin 9.4 g/dL (13.0-18.0); Mean Corp Hgb Conc. 31.2 g/dL (33.0-37.0); Mean Corpuscular Hgb 28.3 pg (27.0-31.0); Mean Corpuscular Volume 90.7 fL (80.0-94.0); Nucleated Red Blood Cells % 0 % (-); Platelet Count 414 10^3/uL (130-400); Red Blood Cell Count 3.32 10^6/uL (4.70-6.10); Red Cell Dist. Width 16.4 % (11.5-14.5); White Blood Cell Count 14.9 10^3/uL (4.8-10.8)
[2023-10-02 12:57] LABS: Lactic Acid 1.3 mmol/L (0.7-2.0)
[2023-10-02 13:12] LABS: Urine Albumin Negative (Neg - Trace); Urine Bilirubin Negative (Negative); Urine Character Clear (Clear); Urine Color Yellow; Urine Glucose Negative (Negative); Urine Ketone Negative (Negative); Urine Leukocyte Negative (Negative); Urine Nitrite Negative (Negative); Urine Occult Blood Negative (Negative); Urine Urobilinogen Negative (Neg - 1+)
[2023-10-02 13:33] LABS: ALT (SGPT) 13 U/L (0-50); AST (SGOT) 22 U/L (17-59); Albumin 2.3 g/dl (3.5-5.0); Alkaline Phosphatase 153 U/L (38-126); Blood Urea Nitrogen 18 mg/dl (9-20); Calcium 8.8 mg/dl (8.4-10.2); Carbon Dioxide 34 mmol/L (22-30); Chloride 102 mmol/L (98-107); Estimated Creatinine Clearance 65 ml/min; Glucose 87 mg/dl (70-99); Potassium 4.2 mmol/L (3.5-5.1); Sodium 139 mmol/L (135-145); Total Bilirubin 0.5 mg/dl (0.2-1.3); Total Protein 5.9 g/dl (6.3-8.2); eGFR > 60.00
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
--- NOTE | 2023-10-02 15:06 | CM ---
Patient is a LTC resident of [facility]. Plan to return on discharge.
[facility] nursing report: [phone]
Discharge instructions fax: [phone]
--- NOTE | 2023-10-02 15:10 | HPS.HSE ---
Family Physician
-
Family Physician: Efrem Hernandez
Chief Complaint
-
Fever
History of Present Illness
Patient is a 72 y/o male past medical history of dysphagia, recurrent left pneumothorax, COPD and seizure disorder who presents with fever. Patient is only able to answer questions with a few simple answers. Patient was recently admitted to [facility] from September 24 to September 30 for pneumonia. Patient was discharged to complete a coarse of Augmentin. He was found to be febrile at the [facility] this morning and he was sent to the emergency department for evaluation. Upon
arrival to the emergency department he was found to be hypotensive. Patient admits to shortness of breath. He denies cough, chest pain, abdominal pain, or diarrhea.
Medical History
Past Medical History
Past Medical History: Reports Other
Additional Past Medical History:
Recurrent Left Pneumothorax
COPD
Chronic Dysphagia
Pulmonary Cachexia
Traumatic Brain Injury
Seizure Disorder
Dysphagia
Arrhythmia
Hyperlipidemia
GERD
BPH
Past Surgical History: Reports Other
Additional Past Surgical History:
Wedge Resection of the Valley of the Left Upper Lobe with Talc Pleurodesis
Kidney Stone
Neurosurgery on head with metal plate at age 9
Social History
Tobacco: Former Smoker
Alcohol: None
Living: Shelter
Family History
Family History: Not pertinent
Allergies / Home Medications
Allergies reflects when Allergies were last updated in [employer].
Home Medications with original date entered in [employer]
Allergy/Medication List:
Allergies
Allergy/AdvReac Type Severity Reaction Status Date / Time
clindamycin Allergy Unknown Verified 10/02/23 12:30
ethambutol Allergy Itching Verified 10/02/23 12:30
levofloxacin Allergy Rash, itchy Verified 10/02/23 12:30
pollen extracts Allergy Seasonal Verified 10/02/23 12:30
Home Medications
alendronate 70 mg tablet 70 mg PO WE osteoporosis 12/03/12
budesonide 0.5 mg/2 mL suspension for nebulization 0.5 mg inhalation R BID@0600,1600 Lung/breathing issues 08/05/13
montelukast 10 mg tablet 10 mg PO DAILY@2000 Lung/breathing issues 04/10/16
gabapentin 100 mg capsule 100 mg PO TID@0600,1400,2100 Neurological Condition 09/06/22
azithromycin 250 mg tablet 250 mg PO MOWEFR@0600 Lung/breathing issues 09/15/22
acetaminophen 325 mg tablet 650 mg PO Q6HPRN PRN mild pain/temp>100 07/09/23
bisacodyl 10 mg rectal suppository (Dulcolax (bisacodyl)) 10 mg KY DAILY PRN if MOM ineffective 07/09/23
fluticasone propionate 50 mcg/actuation nasal spray,suspension 2 spray intranasal DAILY@0600 Allergies 07/09/23
ipratropium 0.5 mg-albuterol 3 mg (2.5 mg base)/3 mL nebulization soln 3 ml inhalation R QID Lung/Breathing Issues 07/09/23
magnesium hydroxide 400 mg/5 mL oral suspension (Milk of Magnesia) 30 ml PO DAILY PRN if no BM x 3 days 07/09/23
phenobarbital 64.8 mg tablet 64.8 mg PO BID@0600,1600 Seizures 07/09/23
sodium phosphates 19 gram-7 gram/118 mL enema (Fleet Enema) 118 ml [place] DAILYPRN PRN if dulcolax supp ineffective 07/09/23
tamsulosin 0.4 mg capsule (Flomax) 0.4 mg PO DAILY@1600 Urinary Issue 07/09/23
zinc oxide 10 % topical cream 1 applic topical DAILY sacrum 07/09/23
Saccharomyces boulardii 250 mg capsule (Probiotic (S.boulardii)) 250 mg PO DAILY@1600 10/02/23
amoxicillin 875 mg-potassium clavulanate 125 mg tablet 1 tab PO BID@0600,1600 10/02/23
loratadine 10 mg disintegrating tablet 10 mg PO DAILY@0610/02/23
meloxicam 7.5 mg tablet 7.5 mg PO DAILY@59910/02/23
midodrine 10 mg tablet 10 mg PO TID 10/02/23
pantoprazole 40 mg tablet,delayed release (Protonix) 40 mg PO DAILY@59910/02/23
prednisone 10 mg tablet 10 mg PO DAILY@59910/02/23
Review of Systems
-
A 12 point ROS was completed and negative except as noted: Yes
Constitutional: Reports Fever
Respiratory: Reports Trouble Breathing; Denies Cough
Cardiac: Denies Chest Pain
Abdomen/GI: Denies Abdominal Pain, Nausea, Vomiting or Diarrhea
Physical Exam
Vital Signs
Vital Signs
Temp Pulse Resp BP Pulse Ox
99.6 F 81 16 117/58 97
10/02/23 12:27 10/02/23 15:00 10/02/23 15:00 10/02/23 15:00 10/02/23 15:00
Physical Exam
General: No Apparent Distress and Appears Chronically Ill
HEENT: NormoCephalic, Atraumatic, Oxygen (Nasal Cannula) and Other (Mucous Membranes Dry)
Respiratory: Non Labored Respirations and Other (Coarse breath sounds )
Cardiac: S1/S2 and Regular Rhythm
GI: Soft and Non Tender
Rectal: Deferred by Provider
Musculoskeletal: No Clubbing, No Cyanosis and No Edema
Skin: Warm and Dry
Neuro: Other (Opens eyes and answers few simple questions)
Laboratory Results
-
10/02/23 12:33
10/02/23 13:00
Laboratory Results
Lactic Acid Cancelled 10/02/23 16:30
Total Bilirubin 0.5 mg/dl (0.2-1.3) 10/02/23 13:00
AST 22 U/L (17-59) 10/02/23 13:00
ALT 13 U/L (0-50) 10/02/23 13:00
Alkaline Phosphatase 153 U/L (38-126) H 10/02/23 13:00
Data Reviewed
-
CT Scan: Report Reviewed by me
Lab Data: Labs Reviewed by me
Impression/Plan
-
Sepsis and Acute TME possibly related to recurrent aspiration pneumonitis
-Check COVID and Influenza
-Check Head CT
-Check ABG
-Await blood cultures
-Consult Pulmonary
-Check procalcitonin - If elevated start broad spectrum antibiotics - If negative complete previously prescribed Augmentin
Dysphagia, concern for recurrent aspiration
-Previously on pureed with nectar thick liquids per [facility] paper
-Continue NPO until seen by speech
COPD, no acute exacerbation
-Continue budesonide and Duoneb
-Patient maintained on prednisone and azithromycin as outpatient
Seizure Disorder
-Check phenobarbital level
-Resume phenobarbital is able to take PO Meds
Chronic Hypotension
-Resume midodrine if able to take oral meds
BPH
-Monitor bladder scans
-Resume Flomax if able to take oral meds
Hx Recurrent Left Pneumothorax s/p Resection of Left Valley with Talc Pleurodesis
DVT Proph: Lovenox
Code Status: Full Code
[2023-10-02] MEDS: ZOSYN 100 IV (15:12)
[2023-10-02 15:14] LABS: B.E. 7.2 mmol/L; HCO3 33.3 mmol/L (21-28); O2 Saturation % 97.9 % (94-98); PCO2 55 mmHg (35-48); PO2 80 mmHg (83-108); pH 7.39 (7.35-7.45)
[2023-10-02 15:48] LABS: COVID-19 Antigen Negative (Negative)
--- NOTE | 2023-10-02 15:56 | W.PN.UPDATE ---
Update Note
Progress Note Update
Patient seen/examined and discussed with LOKI Wong and I agree with her note.
Gen-lethargic 72 yo male male, NAD. Dysarthric
HEENT-NC, AT, anicteric, clear oral MM
Neck-supple, no LAD
CV-reg, no M
Lungs-decreased BS B/L
Abd-soft, NT, ND
Ext-no edema
Neuro-moving all extremities, gross nonfocal
Acute TME - possibly due to sepsis vs. HEAD CORRECTION OFFICER event (stroke) vs. toxin (phenobarb) vs. other. Admit to Tele. CT head today.
Sepsis - unclear if due to pneumonia vs. aspiration pneumonitis vs. other. Check procalcitonin, blood cultures. Continue Augmentin for now.
COVID & influenza negative.
Chest CT with extensive cavitary pneumonia BRICE, progressed compared to Dec 2022 CT. Severe extensive emphysema, worse in upper lobes.
Will consult pulmonary. Has extensive pulmonary history of secondary spontaneous pneumothorax, left apex resection, talc pleurodesis.
Dysphagia - NPO until cleared by speech therapy.
COPD without exacerbation
Chronic hypotension - on Midodrine.
Seizure disorder -on phenobarbital, check level.
TBI - wheelchair dependent.
DNR
Updated sister at bedside.
[2023-10-02] MEDS: VANCOCIN 300 ML IV (15:57)
[2023-10-02] MEDS: VANCOCIN 300 MG IV (15:57)
[2023-10-02 16:06] LABS: Procalcitonin 0.26 ng/ml (0.0-0.25)
--- NOTE | 2023-10-02 16:10 | CON.PUL ---
Consultation
Consultation Request
Date/Time Consultation Requested: 10/02/23
Date/Time Consultation Performed: 10/02/23
Performing Provider: Sheri
Reason for Consultation: PNA
Medical History
-
History of Present Illness:
Patient is a 72 year old male with past medical history of chronic dysphagia, recurrent left pneumothorax, COPD and seizure disorder who presents with fever. Patient is only able to answer questions with a few simple answers. Patient was recently
admitted to [facility] from 09/24-09/30 for pneumonia. Patient was discharged with course of Augmentin. Upon arrival to the emergency department he was found to be hypotensive. Patient admits to shortness of breath. He denies cough,
chest pain, abdominal pain, or diarrhea.
CT showing more extensive L sided PNA with new cavitation compared to prior.
Past Medical History
Past Medical History: Other (see list below)
Social History
Tobacco: Non-smoker
Alcohol: None
Drug: None
Family History
Family History: Reviewed & Not Pertinent
Allergies / Home Medications
Allergies
Allergy/AdvReac Type Severity Reaction Status Date / Time
clindamycin Allergy Unknown Verified 10/02/23 12:30
ethambutol Allergy Itching Verified 10/02/23 12:30
levofloxacin Allergy Rash, itchy Verified 10/02/23 12:30
pollen extracts Allergy Seasonal Verified 10/02/23 12:30
Home Medications
�Medication �Instructions �Recorded �Confirmed �Last Taken �Type
alendronate 70 mg tablet 70 mg PO WE osteoporosis 12/03/12 10/02/23 09/23/23 History
budesonide 0.5 mg/2 mL suspension 0.5 mg inhalation R BID@0600,1600 08/05/13 10/02/23 10/02/23 History
for nebulization Lung/breathing issues
montelukast 10 mg tablet 10 mg PO DAILY@2000 Lung/breathing 04/10/16 10/02/23 12/07/22 History
issues
gabapentin 100 mg capsule 100 mg PO TID@0600,1400,2100 09/06/22 10/02/23 10/02/23 History
Neurological Condition
azithromycin 250 mg tablet 250 mg PO MOWEFR@0600 09/15/22 10/02/23 10/02/23 History
Lung/breathing issues
acetaminophen 325 mg tablet 650 mg PO Q6HPRN PRN mild 07/09/23 10/02/23 Unknown History
pain/temp>100
bisacodyl 10 mg rectal suppository 10 mg NM DAILY PRN if MOM 07/09/23 10/02/23 Unknown History
(Dulcolax (bisacodyl)) ineffective
fluticasone propionate 50 2 spray intranasal DAILY@0600 07/09/23 10/02/23 10/02/23 History
mcg/actuation nasal Allergies
spray,suspension
ipratropium 0.5 mg-albuterol 3 mg 3 ml inhalation R QID 07/09/23 10/02/23 10/02/23 History
(2.5 mg base)/3 mL nebulization Lung/Breathing Issues
soln
magnesium hydroxide 400 mg/5 mL 30 ml PO DAILY PRN if no BM x 3 07/09/23 10/02/23 Unknown History
oral suspension (Milk of Magnesia) days
phenobarbital 64.8 mg tablet 64.8 mg PO BID@0600,1600 Seizures 07/09/23 10/02/23 10/02/23 History
sodium phosphates 19 gram-7 118 ml NM DAILYPRN PRN if dulcolax 07/09/23 10/02/23 Unknown History
gram/118 mL enema (Fleet Enema) supp ineffective
tamsulosin 0.4 mg capsule (Flomax) 0.4 mg PO DAILY@1600 Urinary Issue 07/09/23 10/02/23 Unknown History
zinc oxide 10 % topical cream 1 applic topical DAILY sacrum 07/09/23 10/02/23 10/02/23 History
Saccharomyces boulardii 250 mg 250 mg PO DAILY@1600 10/02/23 10/02/23 Unknown History
capsule (Probiotic (S.boulardii))
amoxicillin 875 mg-potassium 1 tab PO BID@0600,1600 10/02/23 10/02/23 10/02/23 History
clavulanate 125 mg tablet
loratadine 10 mg disintegrating 10 mg PO DAILY@0600 10/02/23 10/02/23 10/02/23 History
tablet
meloxicam 7.5 mg tablet 7.5 mg PO DAILY@0600 10/02/23 10/02/23 10/02/23 History
midodrine 10 mg tablet 10 mg PO TID 10/02/23 10/02/23 10/02/23 History
pantoprazole 40 mg tablet,delayed 40 mg PO DAILY@0600 10/02/23 10/02/23 10/02/23 History
release (Protonix)
prednisone 10 mg tablet 10 mg PO DAILY@0600 10/02/23 10/02/23 10/02/23 History
Review of Systems
-
History Source: Patient
All other systems: Negative unless noted
Vitals / Labs / Diagnostic Testing
Vital Signs
Temp Pulse Resp BP Pulse Ox
99.6 F 73 16 106/51 97
10/02/23 12:27 10/02/23 15:30 10/02/23 15:00 10/02/23 15:30 10/02/23 15:31
Lab Data
10/02/23 12:33
10/02/23 13:00
Laboratory Results
10/02/23
15:05
pH 7.39
pCO2 55 H
pO2 80 L
HCO3 33.3 H
O2 Delivery Level
Microbiology
10/02/23 15:07 Nasal Swab Influenza Types A & B (SHELL) - Final
Negative for Influenza A & B, NAAT
Negative results must be combined with clinical observations
and patient history.
Nucleic Acid Amplification test (NAAT)performed on the
[employer] platform.
Diagnostic Testing:
Physical Exam
-
HEENT: Normocephalic, Anicteric and Moist Mucous Membranes
Cardiovascular: S1/S2 and Regular Rhythm
Respiratory: Clear and Non-Labored Respirations
GI: Soft, Non Distended and Non Tender
Neurology: Awake, Alert, Oriented, AO x 3 and No Motor Deficits
Skin: Warm, Dry and Good Color
General: Comfortable and Other (NAD)
Assessment
-
Patient is a 72 year old male with past medical history of chronic dysphagia, recurrent left pneumothorax, COPD and seizure disorder who presents with fever. Patient was recently admitted to [facility] from 09/24-09/30 for pneumonia,
discharged with Augmentin. In ER, found to be hypotensive. CT showing more extensive L sided PNA with new cavitation compared to prior. We are consulted for eval.
Large L sided cavitary PNA
Suspicion for chronic aspiration, anaerobic infection
Conditions present prior admission:
Recurrent left-sided secondary spontaneous pneumothorax (SSP): 2nd episode diagnosed at ER 12-07-22, L chest tube at ER.
First episode of left pneumothorax 09-15-22, L chest tube at ER on that day, removed 09-22-22.
S/p L thoracoscopy, mini-thoracotomy, wedge resection of right apex bleb, talc pleurodesis 12-16-22
Chronic masslike opacity in the left lower lobe based on CAT scan 09/2022.� Persistent on CT abdomen pelvis 12/01/2022.
Discharged from the hospital 12/01/2022: Urinary retention/constipation/mild acute exacerbation of COPD
History of multifocal pneumonia with Acinetobacter May 2020
Remote history of MEGAN infection s/p treatment 2011
Advanced COPD/emphysema: Airduo/ Albuterol HFA/DuoNeb/chronic Zithromax therapy/low-dose prednisone
FEV1 <30%
Follows [facility] Dr Salguero
Bronchiectasis
Chronic prednisone therapy
Former smoker
Pulmonary cachexia
TBI, cognitive impairment
Severe deconditioning
Seizure
GERD
OP
Chronic ambulatory dysfunction
R hip replacement
Allergy to ETB, levofloxacin
MRSA screening positive
Plan
Not on oxygen, stable on RA
Secretion clearance interventions: Including Acapella device, incentive spirometry
Multiple CAT scan abnormalities: Concerning for left upper lobe pneumonia, enlarged compared to prior
Aspiration PNA would be highly suspected given history
We will obtain a sputum culture
Fever noted at NH
Would continue Unasyn IV
If unable to produce sputum, may need diagnostic BAL
Chronic dysphagia
ST eval in past reviewed
VSE reviewed, recs: DYS 5 diet with moderately thick liquids
Aspiration precautions
If ongoing, may need to consider alternate means of nutrition
Difficult situation
Sister at bedside, I updated her on condition and possible need to consider alternative means for meals
He has two other siblings, another sister and brother who sometimes make decisions together
He is DNR, would not be unreasonable to start GOC discussions if not improving
Follow with [facility] upon d/c
Known to Dr Salguero
We will follow
Diagnostic Data
CT Chest 10/02/23: 1. Extensive cavitary pneumonia within the left upper lobe, significantly progressed compared to prior CT dated 12/31/2022. No evidence of significant left pleural effusion or empyema.
2. Severe emphysema diffusely, most pronounced within the upper lung zone on each side.
3. Tiny right pleural effusion, with right basilar subsegmental atelectasis.
4. Nodular opacities within the left lower lobe, measuring 1.8 cm in greatest dimension, slightly decreased in size compared to prior CT.
5. Small pericardial effusion.
6. Moderate coronary arterial calcification. Please correlate with symptoms of and risk factors for coronary artery disease, with further workup as clinically appropriate.
CT chest 12/31/22: Reviewed, showed progressive left upper lobe consolidation scarring versus pneumonia-postsurgical changes. Stable loculated pneumothorax on the left upper lung field versus cavitary lesion. Slight enlarged left lower lobe
pulmonary nodules infectious versus inflammatory versus malignant. Scattered bilateral solid noncalcified pulmonary nodules stable to a small to characterize. Small loculated left pleural effusion progressed. Severe bilateral emphysema.
VSE 07/10/23- Patient presents with mild oral and moderate-severe pharyngeal dysphagia. Patient had aspiration due to delayed/incomplete closure of the larynx which was silent (no cough) with thin liquids via cup (cleared with a cued cough) and
claritza/silent with mildly thick liquids via cup (which did not clear with a cued cough.) Patient had moderate vallecular retention with solids, minimally reduced with secondary swallows, and reduced to mild amounts with a moderately thick liquid
wash (but this was penetrated and did not clear upper laryngeal space.) See patient care note for further details.
[2023-10-02 16:37] LABS: Amphetamines Negative (Negative); Barbiturates Positive (Negative); Benzodiazepines Negative (Negative); Buprenorphine Negative (Negative); Cocaine Negative (Negative); Marijuana Negative (Negative); Methadone Negative (Negative); Methamphetamines Negative (Negative); Opiates Negative (Negative); Phencyclidine Negative (Negative)
[2023-10-02 16:38] LABS: Tricyclic Antidepressants Negative (Negative)
[2023-10-02] MEDS: DUONEB INH (16:58)
[2023-10-02] MEDS: PULMICORT INH (16:58)
[2023-10-02] MEDS: LOVENOX 40 MG SC (18:54)
[2023-10-02] MEDS: DUONEB 3 ML INH (20:18)
[2023-10-03 03:45] VITALS: BP 129/66
--- NOTE | 2023-10-03 05:34 | PTCARENOTE ---
Patient received in room upon change of shift. AAOX1-2. Patient denies pain or discomfort. Garbled, slow speech. Call hernandez within reach.
[2023-10-03 05:35] LABS: Hematocrit 27.9 % (39.0-52.0); Hemoglobin 8.8 g/dL (13.0-18.0); Mean Corp Hgb Conc. 31.5 g/dL (33.0-37.0); Mean Corpuscular Hgb 28.7 pg (27.0-31.0); Mean Corpuscular Volume 90.9 fL (80.0-94.0); Mean Platelet Volume 9.1 fL (7.4-10.4); Platelet Count 329 10^3/uL (130-400); Red Blood Cell Count 3.07 10^6/uL (4.70-6.10); Red Cell Dist. Width 16.5 % (11.5-14.5); White Blood Cell Count 9.7 10^3/uL (4.8-10.8)
[2023-10-03 06:00] VITALS: BMI 22.4
[2023-10-03 06:01] LABS: ALT (SGPT) 14 U/L (0-50); AST (SGOT) 23 U/L (17-59); Albumin 2.4 g/dl (3.5-5.0); Alkaline Phosphatase 149 U/L (38-126); Blood Urea Nitrogen 18 mg/dl (9-20); Calcium 8.8 mg/dl (8.4-10.2); Carbon Dioxide 34 mmol/L (22-30); Chloride 100 mmol/L (98-107); Estimated Creatinine Clearance 73 ml/min; Glucose 81 mg/dl (70-99); Magnesium 1.7 mg/dl (1.6-2.3); Potassium 4.4 mmol/L (3.5-5.1); Sodium 138 mmol/L (135-145); Total Bilirubin 0.3 mg/dl (0.2-1.3); Total Protein 6.1 g/dl (6.3-8.2); eGFR > 60.00
[2023-10-03 07:04] VITALS: BP 103/62
[2023-10-03 08:00] VITALS: BMI 22.4
[2023-10-03] MEDS: DUONEB 3 ML INH ×4 (08:03→20:38)
[2023-10-03] MEDS: PULMICORT 0.5 MG INH ×2 (08:03→15:04)
--- NOTE | 2023-10-03 10:42 | W.PN.HOSP.TC ---
Today's Communication/Plan
-
IV fluids
IV Unasyn
Speech consult
Anemia labs
Assessment / Plan
Assessment / Plan
Gen-awake but not alert, NAD
HEENT-NC, AT, anicteric, clear oral mm
Neck-supple
CV-reg, no M, +S1/S2
Lungs-clear B/L
Abd-soft, NT, ND
Ext-no edema
Musculoskeletal-no cyanosis, clubbing
Skin-warm and dry
Neuro-grossly non-focal
Psych-calm, cooperative
Acute TME -suspect mental status back to baseline. Source of TME unclear.
Sepsis -presumably due to aspiration pneumonia. Stable now. White blood cell count improved. No significant fevers. Blood cultures pending. Procalcitonin 0.26.
Recurrent aspiration pneumonia -due to dysphagia. CT chest with extensive cavitary pneumonia in the left upper lobe, progressed compared to prior CT in December. Now on IV Unasyn. Pulmonary following.
Dysphagia - NPO until cleared by speech therapy. IV fluids ordered.
COPD without exacerbation
Chronic hypotension - on Midodrine.
Seizure disorder -on phenobarbital, check level.
TBI - wheelchair dependent.
Acute on chronic anemia -baseline hemoglobin 11, 8.8 today. MCV normal. Check anemia labs. No evidence of bleeding. Stools are brown.
DNR
Anticipated Discharge: > 48 hours
Subjective/Interval History
-
Date of Service: October 03, 2023
Patient seen and examined. No complaints.
Objective Data
-
Labs:
Laboratory Results
10/03/23
04:47
WBC 9.7
Hgb 8.8 L
Hct 27.9 L
Plt Count 329 D
Sodium 138
Potassium 4.4
Chloride 100
Carbon Dioxide 34 H
BUN 18
Creatinine 0.8
Glucose 81
Calcium 8.8
Total Bilirubin 0.3
AST 23
ALT 14
Alkaline Phosphatase 149 H
Vital Signs:
Vital Signs
Temp Pulse Resp BP Pulse Ox
99.2 F 83 16 103/62 95
10/03/23 07:04 10/03/23 08:04 10/03/23 08:04 10/03/23 07:04 10/03/23 08:04
I&O
10/02/23 10/03/23 10/04/23
06:59 06:59 06:59
Intake Total 0 / 0
Balance 0 / 0
Review of Systems
-
History Source: Patient
All other systems: Reviewed and negative
[2023-10-03 10:54] LABS: Reticulocyte Count 1.6 % (0.4-2.8)
[2023-10-03 11:26] LABS: Iron < 20 ug/dl (49-181)
[2023-10-03 11:31] VITALS: BP 118/58
[2023-10-03 11:54] LABS: Total Iron Binding Capacity 205 ug/dl (261-462)
[2023-10-03] MEDS: UNASYN IV ×3 (11:59→23:49)
[2023-10-03] MEDS: 0.45%NACL 1000 IV (11:59)
[2023-10-03 13:04] LABS: Folate 7.7 ng/ml (2.76-20); Vitamin B12 777 pg/ml (239-931)
--- NOTE | 2023-10-03 13:59 | PTOTSP ---
SPEECH THERAPY SWALLOW EVALUATION:
Clinical signs of oropharyngeal dysphagia, likely chronic related to history of TBI/dysphagia, and acutely exacerbated by sepsis and TME secondary to recurrent aspiration pneumonitis. Patient remains at HIGH RISK for recurrent aspiration and related
complications, given repeated recent hospital admissions with pneumonia. Unclear if patient has been able to maintain strict diet modifications and/or aspiration precautions upon discharge. Recommend cautious oral diet of IDDSI Level 4 Puree and
Moderately-thick (Honey) liquids. Medications crushed in puree. Aspiration precautions includin% supervision/1:1 assist with meals; Upright positioning; Extra dry swallows; Verbal cue to cough when wet vocal quality; Ensure pt swallows prior
to next bite; oral care 3-5x/day; Eat only when awake/alert; Provide p.o. only when SpO2>90% and RR<30; Remain up 30 minutes after p.o. intake; Monitor CXR and labs. If pt exhibits signs of aspiration or a decline in mental or respiratory status,
d/c oral diet and make NPO. Given repeated pneumonia and continued high risk for aspiration and related complications, recommend Goals of Care discussion between physician/family to determine best plan of care. ST to follow, assess diet tolerance
and modify as appropriate, determine indication for repeat VFSS if warranted, provide continued education regarding aspiration risks/precautions, and provide continued support for GOC and plan of care.
RECOMMEND:
1) IDDSI Level 4 Puree and Moderately-thick (Honey) liquids
2) Medications crushed in puree
3) Aspiration precautions includin% supervision/1:1 assist with meals; Upright positioning; Extra dry swallows; Verbal cue to cough when wet vocal quality; Ensure pt swallows prior to next bite; oral care 3-5x/day; Eat only when awake/alert;
Provide p.o. only when SpO2>90% and RR<30; Remain up 30 minutes after p.o. intake; Monitor CXR and labs. If pt exhibits signs of aspiration or a decline in mental or respiratory status, d/c oral diet and make NPO
4) Speech therapy to follow
[2023-10-03 15:00] VITALS: BP 119/63
--- NOTE | 2023-10-03 15:47 | W.PN.PUL3 ---
Today's Communication / Plan
-
O2
Atbs
CXR 10-04
Assessment
-
Patient is a 72 year old male with past medical history of chronic dysphagia, recurrent left pneumothorax, COPD and seizure disorder who presents with fever. Patient was recently admitted to [facility] from 09/24-09/30 for pneumonia,
discharged with Augmentin. In ER, found to be hypotensive. CT showing more extensive L sided PNA with new cavitation compared to prior. We are consulted for eval.
Large L sided cavitary PNA
Suspicion for chronic aspiration, anaerobic infection
Conditions present prior admission:
Recurrent left-sided secondary spontaneous pneumothorax (SSP): 2nd episode diagnosed at ER 12-07-22, L chest tube at ER.
First episode of left pneumothorax 09-15-22, L chest tube at ER on that day, removed 09-22-22.
S/p L thoracoscopy, mini-thoracotomy, wedge resection of right apex bleb, talc pleurodesis 12-16-22
Chronic masslike opacity in the left lower lobe based on CAT scan 09/2022.� Persistent on CT abdomen pelvis 12/01/2022.
Discharged from the hospital 12/01/2022: Urinary retention/constipation/mild acute exacerbation of COPD
History of multifocal pneumonia with Acinetobacter May 2020
Remote history of MEGAN infection s/p treatment 2011
Advanced COPD/emphysema: Airduo/ Albuterol HFA/DuoNeb/chronic Zithromax therapy/low-dose prednisone
FEV1 <30%
[facility] Salguero
Bronchiectasis
Chronic prednisone therapy
Former smoker
Pulmonary cachexia
TBI, cognitive impairment
Severe deconditioning
Seizure
GERD
OP
Chronic ambulatory dysfunction
R hip replacement
Allergy to ETB, levofloxacin
MRSA screening positive
Plan
Not on oxygen, stable on RA
Secretion clearance interventions: Including Acapella device, incentive spirometry
Multiple CAT scan abnormalities: Concerning for left upper lobe pneumonia, enlarged compared to prior
Aspiration PNA would be highly suspected given history
Sputum culture not yet collected, may need diagnostic BAL if family accepts considering GOC (DNR)
Blood cx so far negative
PCT mildly elevated
Fever noted at NH
Continue Unasyn IV
F/u CXR 10-04
Chronic dysphagia
ST eval in past reviewed
VSE reviewed, recs: DYS 5 diet with moderately thick liquids
Aspiration precautions
If ongoing, may need to consider alternate means of nutrition
Difficult situation
Sister at bedside, Dr Chaney updated her 10-01 on condition and possible need to consider alternative means for meals
He has two other siblings, another sister and brother who sometimes make decisions together
He is DNR, would not be unreasonable to start GOC discussions if not improving
Follow with [facility] upon d/c
Known to Dr Slaguero
Diagnostic Data
CT Chest 10/02/23: 1. Extensive cavitary pneumonia within the left upper lobe, significantly progressed compared to prior CT dated 12/31/2022. No evidence of significant left pleural effusion or empyema.
2. Severe emphysema diffusely, most pronounced within the upper lung zone on each side.
3. Tiny right pleural effusion, with right basilar subsegmental atelectasis.
4. Nodular opacities within the left lower lobe, measuring 1.8 cm in greatest dimension, slightly decreased in size compared to prior CT.
5. Small pericardial effusion.
6. Moderate coronary arterial calcification. Please correlate with symptoms of and risk factors for coronary artery disease, with further workup as clinically appropriate.
CT chest 12/31/22: Reviewed, showed progressive left upper lobe consolidation scarring versus pneumonia-postsurgical changes. Stable loculated pneumothorax on the left upper lung field versus cavitary lesion. Slight enlarged left lower lobe
pulmonary nodules infectious versus inflammatory versus malignant. Scattered bilateral solid noncalcified pulmonary nodules stable to a small to characterize. Small loculated left pleural effusion progressed. Severe bilateral emphysema.
VSE 07/10/23- Patient presents with mild oral and moderate-severe pharyngeal dysphagia. Patient had aspiration due to delayed/incomplete closure of the larynx which was silent (no cough) with thin liquids via cup (cleared with a cued cough) and
claritza/silent with mildly thick liquids via cup (which did not clear with a cued cough.) Patient had moderate vallecular retention with solids, minimally reduced with secondary swallows, and reduced to mild amounts with a moderately thick liquid
wash (but this was penetrated and did not clear upper laryngeal space.) See patient care note for further details.
Subjective Data
-
Date of Service:
Date of Service: October 03, 2023
Chief Complaint: Pulmonary Follow Up
Subjective:
No major events reported overnight
Continues on oxygen supplementation
Continues IV antibiotic
Patient appears weak and deconditioned, in spite of this, he reports improvement in dyspnea and cough
Review of Systems
General: Other (Overall poor historian but denies major complaints)
Objective Data
Data Reviewed
Vital Signs / I&O / Oxygen:
Vital Signs
Temp Pulse Resp BP Pulse Ox
99 F 86 18 119/63 100
10/03/23 15:00 10/03/23 15:10 10/03/23 15:10 10/03/23 15:00 10/03/23 15:00
Intake and Output
10/02/23 10/03/23 10/04/23
06:59 06:59 06:59
Intake Total 0 / 0 420 / 420
Balance 0 / 0 420 / 420
SaO2 100
Nasal Cannula flow liters per 2
minute
Physical Exam
HEENT: Normocephalic and Moist Mucous Membranes
Cardiovascular: Regular Rhythm, JVD (n) and Peripheral Edema (n)
Respiratory: Wheeze (n), Crackles, Rhonchi, Accessory Resp Muscle Use (n) and Stridor (n)
GI: Soft, Non Distended and Non Tender
Neurology: Awake and No Motor Deficits (but weak)
Skin: Warm
Labs/Micro/Reports
Lab Data
10/03/23 04:47
10/03/23 04:47
Microbiology
10/02/23 12:41 Blood/Venous Blood Culture - Preliminary
No Growth in 24 hours- Final report to follow
10/02/23 12:33 Blood/Venous Blood Culture - Preliminary
No Growth in 24 hours- Final report to follow
10/02/23 15:07 Nasal Swab Influenza Types A & B (SHELL) - Final
Negative for Influenza A & B, NAAT
Negative results must be combined with clinical observations
and patient history.
Nucleic Acid Amplification test (NAAT)performed on the
[employer] platform.
[2023-10-03] MEDS: LOVENOX 40 MG SC (16:34)
[2023-10-03] MEDS: FLOMAX 0.400000000000000022 MG PO (16:34)
[2023-10-03] MEDS: LUMINAL 64.7999999999999972 MG PO (16:34)
[2023-10-03 19:00] VITALS: BP 108/45
[2023-10-03] MEDS: TYLENOL 650 MG PO (19:47)
[2023-10-03] MEDS: SINGULAIR 10 MG PO (19:48)
[2023-10-03 23:00] VITALS: BP 91/58
[2023-10-04] VITALS (7 sets, daily range): BP systolic 91–115; BP diastolic 53–59; BMI 21.9
[2023-10-04] MEDS: 0.45%NACL 1000 IV (02:12)
[2023-10-04] MEDS: DELTASONE 10 MG PO (05:01)
[2023-10-04] MEDS: LUMINAL 64.7999999999999972 MG PO ×2 (05:01→16:01)
[2023-10-04] MEDS: PROTONIX 40 MG PO (05:01)
[2023-10-04] MEDS: UNASYN IV ×4 (05:01→23:59)
[2023-10-04] MEDS: DUONEB 3 ML INH ×4 (07:55→18:10)
[2023-10-04] MEDS: PULMICORT 0.5 MG INH ×2 (07:55→14:55)
--- NOTE | 2023-10-04 09:17 | W.PN.HOSP.TC ---
Today's Communication/Plan
-
Continue antibiotics
Chest x-ray tomorrow
Assessment / Plan
Assessment / Plan
Gen-awake but not alert, NAD
HEENT-NC, AT, anicteric, clear oral mm
Neck-supple
CV-reg, no M, +S1/S2
Lungs-mild expiratory wheezing, Rales on the left side
Abd-soft, NT, ND
Ext-no edema
Musculoskeletal-no cyanosis, clubbing
Skin-warm and dry
Neuro-grossly non-focal
Psych-calm, cooperative
Acute TME -suspect mental status back to baseline. Etiology TME possibly due to aspiration pneumonia, sepsis.
Sepsis -presumably due to aspiration pneumonia. Stable now. White blood cell count improved. Fever noted last night, 101.5 �F. Blood cultures negative so far. Procalcitonin 0.26. Continue empiric IV Unasyn.
Recurrent aspiration pneumonia -due to dysphagia. CT chest with extensive cavitary pneumonia in the left upper lobe, progressed compared to prior CT in December. Now on IV Unasyn. Pulmonary following. Currently on 2 L nasal cannula oxygen, wean
down as able.
Dysphagia -speech therapy evaluated, recommend pur�ed diet with honey thick liquids. Strict aspiration precautions.
COPD without exacerbation
Chronic hypotension - on Midodrine.
Seizure disorder -on phenobarbital, check level.
TBI - wheelchair dependent.
Acute on chronic anemia -baseline hemoglobin 11, 8.8 today. MCV normal. No evidence of bleeding. Stools are brown. Anemia labs reviewed, not diagnostic.
DNR
Anticipated Discharge: > 48 hours
Subjective/Interval History
-
Date of Service: October 04, 2023
Patient seen and examined. No complaints.
Objective Data
-
Vital Signs:
Vital Signs
Temp Pulse Resp BP Pulse Ox
98.3 F 78 16 113/53 97
10/04/23 07:10 10/04/23 07:59 10/04/23 07:59 10/04/23 07:10 10/04/23 07:59
I&O
10/03/23 10/04/23 10/05/23
06:59 06:59 06:59
Intake Total 0 / 0 1200 / 1200 1520 / 1520
Output Total 275 / 275 775 / 775
Balance 0 / 0 925 / 925 745 / 745
Review of Systems
-
History Source: Patient
All other systems: Reviewed and negative
[2023-10-04] MEDS: FLOMAX 0.400000000000000022 MG PO (16:01)
--- NOTE | 2023-10-04 16:38 | W.PN.PUL3 ---
Today's Communication / Plan
-
Atb
CXR AM
Assessment
-
Patient is a 72 year old male with past medical history of chronic dysphagia, recurrent left pneumothorax, COPD and seizure disorder who presents with fever. Patient was recently admitted to [facility] from 09/24-09/30 for pneumonia,
discharged with Augmentin. In ER, found to be hypotensive. CT showing more extensive L sided PNA with new cavitation compared to prior. We are consulted for eval.
Large L sided cavitary PNA
Suspicion for chronic aspiration, anaerobic infection
Conditions present prior admission:
Recurrent left-sided secondary spontaneous pneumothorax (SSP): 2nd episode diagnosed at ER 12-07-22, L chest tube at ER.
First episode of left pneumothorax 09-15-22, L chest tube at ER on that day, removed 09-22-22.
S/p L thoracoscopy, mini-thoracotomy, wedge resection of right apex bleb, talc pleurodesis 12-16-22
Chronic masslike opacity in the left lower lobe based on CAT scan 09/2022.� Persistent on CT abdomen pelvis 12/01/2022.
Discharged from the hospital 12/01/2022: Urinary retention/constipation/mild acute exacerbation of COPD
History of multifocal pneumonia with Acinetobacter May 2020
Remote history of MEGAN infection s/p treatment 2011
Advanced COPD/emphysema: Airduo/ Albuterol HFA/DuoNeb/chronic Zithromax therapy/low-dose prednisone
FEV1 <30%
Follows [facility] Dr Salguero
Bronchiectasis
Chronic prednisone therapy
Former smoker
Pulmonary cachexia
TBI, cognitive impairment
Severe deconditioning
Seizure
GERD
OP
Chronic ambulatory dysfunction
R hip replacement
Allergy to ETB, levofloxacin
MRSA screening positive
Plan
O2 2L, POx 97%
Secretion clearance interventions: Including Acapella device, incentive spirometry
Multiple CAT scan abnormalities: Concerning for left upper lobe pneumonia, enlarged compared to prior
Aspiration PNA would be highly suspected given history
Sputum culture was not collected, may need diagnostic BAL if family accepts considering GOC (DNR)
Blood cx so far negative
PCT mildly elevated
Fever noted at [place]
One event of fever since adm: 101.5F on 10-02
Continue Unasyn IV
F/u CXR 10-04 ordered
Chronic dysphagia
ST eval in past reviewed
VSE reviewed, recs: DYS 5 diet with moderately thick liquids
Aspiration precautions
If ongoing, may need to consider alternate means of nutrition
Sister at bedside, Dr Chaney updated her 10-01 on condition and possible need to consider alternative means for meals
He has two other siblings, another sister and brother who sometimes make decisions together
He is DNR, would not be unreasonable to start GOC discussions if not improving
Follow with [facility] upon d/c
Known to Dr Salguero
D/w RN at bedside
Diagnostic Data
CT Chest 10/02/23: 1. Extensive cavitary pneumonia within the left upper lobe, significantly progressed compared to prior CT dated 12/31/2022. No evidence of significant left pleural effusion or empyema.
2. Severe emphysema diffusely, most pronounced within the upper lung zone on each side.
3. Tiny right pleural effusion, with right basilar subsegmental atelectasis.
4. Nodular opacities within the left lower lobe, measuring 1.8 cm in greatest dimension, slightly decreased in size compared to prior CT.
5. Small pericardial effusion.
6. Moderate coronary arterial calcification. Please correlate with symptoms of and risk factors for coronary artery disease, with further workup as clinically appropriate.
CT chest 12/31/22: Reviewed, showed progressive left upper lobe consolidation scarring versus pneumonia-postsurgical changes. Stable loculated pneumothorax on the left upper lung field versus cavitary lesion. Slight enlarged left lower lobe
pulmonary nodules infectious versus inflammatory versus malignant. Scattered bilateral solid noncalcified pulmonary nodules stable to a small to characterize. Small loculated left pleural effusion progressed. Severe bilateral emphysema.
VSE 07/10/23- Patient presents with mild oral and moderate-severe pharyngeal dysphagia. Patient had aspiration due to delayed/incomplete closure of the larynx which was silent (no cough) with thin liquids via cup (cleared with a cued cough) and
claritza/silent with mildly thick liquids via cup (which did not clear with a cued cough.) Patient had moderate vallecular retention with solids, minimally reduced with secondary swallows, and reduced to mild amounts with a moderately thick liquid
wash (but this was penetrated and did not clear upper laryngeal space.) See patient care note for further details.
Subjective Data
-
Date of Service:
Date of Service: October 04, 2023
Chief Complaint: Pulmonary Follow Up
Subjective:
No major events reported overnight
Continues on supplemental oxygen
Appears clinically improved
Denies major complaints at this time
Review of Systems
General: Other (Limited historian but denies major complaints at this time)
Objective Data
Data Reviewed
Vital Signs / I&O / Oxygen:
Vital Signs
Temp Pulse Resp BP Pulse Ox
97.5 F 84 16 110/56 100
10/04/23 16:14 10/04/23 16:14 10/04/23 16:14 10/04/23 16:14 10/04/23 16:14
Intake and Output
10/03/23 10/04/23 10/05/23
06:59 06:59 06:59
Intake Total 0 / 0 1200 / 1200 1520 / 1520
Output Total 275 / 275 775 / 775
Balance 0 / 0 925 / 925 745 / 745
SaO2 100
Nasal Cannula flow liters per 2
minute
Physical Exam
General: Respiratory Distress (n) and Comfortable
HEENT: Normocephalic and Moist Mucous Membranes
Cardiovascular: Regular Rhythm, JVD (n) and Peripheral Edema (n)
Respiratory: Wheeze (n), Crackles, Rhonchi, Accessory Resp Muscle Use (n) and Stridor (n)
GI: Soft, Non Distended and Non Tender
Neurology: Awake and No Motor Deficits (but weak)
Skin: Warm
Labs/Micro/Reports
Lab Data
10/03/23 04:47
10/03/23 04:47
Microbiology
10/02/23 12:41 Blood/Venous Blood Culture - Preliminary
No Growth in 48 hours- Final report to follow
10/02/23 12:33 Blood/Venous Blood Culture - Preliminary
No Growth in 48 hours- Final report to follow
10/02/23 15:07 Nasal Swab Influenza Types A & B (SHELL) - Final
Negative for Influenza A & B, NAAT
Negative results must be combined with clinical observations
and patient history.
Nucleic Acid Amplification test (NAAT)performed on the
[employer] platform.
[2023-10-04] MEDS: LOVENOX 40 MG SC (16:47)
--- NOTE | 2023-10-04 18:41 | PTCARENOTE ---
Patient appetite 100% at meals , did need assist with feeding. Occasional cough at times, able to clear on his own. Sacrum improving , reddened area improving with condom cath and open to air.
[2023-10-04] MEDS: SINGULAIR 10 MG PO (20:12)
[2023-10-05 03:50] VITALS: BP 116/60
[2023-10-05 05:36] VITALS: BMI 21.6
[2023-10-05] MEDS: DELTASONE 10 MG PO (05:37)
[2023-10-05] MEDS: UNASYN IV ×4 (05:37→23:34)
[2023-10-05] MEDS: PROTONIX 40 MG PO (05:37)
[2023-10-05] MEDS: LUMINAL 64.7999999999999972 MG PO ×2 (05:37→17:40)
[2023-10-05 06:43] VITALS: BMI 21.2
[2023-10-05 07:00] VITALS: BP 123/67
[2023-10-05 07:27] LABS: % Basophils 0.4 % (0-2); % Eosinophils 5.6 % (0-6); % Immature Granulocytes 0.4 % (0-0.5); % Lymphocytes 9.3 % (20.5-51.1); % Monocytes 11.7 % (1.7-9.3); % Neutrophils 72.6 % (42.2-75.2); Absolute Eosinophils 0.4 10^3/uL (0-0.7); Absolute Lymphocytes 0.7 10^3/uL (1.2-3.4); Absolute Monocytes 0.9 10^3/uL (0.1-0.6); Absolute Neutrophils 5.5 10^3/uL (1.4-6.5); Hematocrit 27.7 % (39.0-52.0); Mean Corp Hgb Conc. 32.5 g/dL (33.0-37.0); Mean Corpuscular Hgb 28.8 pg (27.0-31.0); Mean Corpuscular Volume 88.5 fL (80.0-94.0); Mean Platelet Volume 9.1 fL (7.4-10.4); Nucleated Red Blood Cells % 0 % (-); Platelet Count 333 10^3/uL (130-400); Red Blood Cell Count 3.13 10^6/uL (4.70-6.10); Red Cell Dist. Width 16.2 % (11.5-14.5); White Blood Cell Count 7.5 10^3/uL (4.8-10.8)
[2023-10-05] MEDS: DUONEB 3 ML INH ×4 (08:28→19:48)
[2023-10-05] MEDS: PULMICORT 0.5 MG INH ×2 (08:28→15:59)
--- NOTE | 2023-10-05 09:25 | W.PN.HOSP.TC ---
Today's Communication/Plan
-
IV antibiotics. Chest x-ray PA lateral today
Assessment / Plan
Assessment / Plan
Gen-awake but not alert, NAD
HEENT-NC, AT, anicteric, clear oral mm
Neck-supple
CV-reg, no M, +S1/S2
Lungs-mild expiratory wheezing, Rales on the left side
Abd-soft, NT, ND
Ext-no edema
Musculoskeletal-no cyanosis, clubbing
Skin-warm and dry
Neuro-grossly non-focal
Psych-calm, cooperative
A/P:
Acute TME -suspect mental status back to baseline. Etiology TME possibly due to aspiration pneumonia, sepsis. Might need PT OT eval but will find out his baseline first.
Sepsis -presumably due to aspiration pneumonia. Stable now. White blood cell count improved. Blood cultures negative so far. Procalcitonin 0.26. Continue empiric IV Unasyn.
Recurrent aspiration pneumonia -due to dysphagia. CT chest with extensive cavitary pneumonia in the left upper lobe, progressed compared to prior CT in December. Now on IV Unasyn. Pulmonary following. Currently on 2 L nasal cannula oxygen, wean
down as able. Repeat chest x-ray today. Follow-up further pulmonary recommendations.
Dysphagia -speech therapy evaluated, recommend pur�ed diet with honey thick liquids. Strict aspiration precautions.
COPD without exacerbation. On low-dose of steroids.
Chronic hypotension - on Midodrine.
Seizure disorder -on phenobarbital, check level pending.
TBI - wheelchair dependent.
Acute on chronic anemia -baseline hemoglobin 9 today. MCV normal. No evidence of bleeding. Stools are brown. Anemia labs reviewed.
DNR
Total time spent on today's encounter was 52 minutes which included time spent in counseling the patient/family regarding diagnosis and treatment plan as listed above, goals of care, and symptom management. Case was discussed with nursing staff,
specialists, and care coordinators/case management. All labs and imaging personally reviewed by me. Remainder the time spent in detailed review of previous records, lab data, imaging, and other medical provider documentation.
Anticipated Discharge: > 48 hours
Subjective/Interval History
-
Date of Service: October 05, 2023
Patient denies any worsening shortness of breath. Afebrile. Looks frail overall
Objective Data
-
Labs:
Laboratory Results
10/05/23
06:59
WBC 7.5
Hgb 9.0 L
Hct 27.7 L
Plt Count 333
Vital Signs:
Vital Signs
Temp Pulse Resp BP Pulse Ox
98.0 F 83 16 123/67 95
10/05/23 07:00 10/05/23 08:34 10/05/23 08:34 10/05/23 07:00 10/05/23 08:34
I&O
10/04/23 10/05/23 10/06/23
06:59 06:59 06:59
Intake Total 1200 / 1200 3840 / 3840 240 / 240
Output Total 275 / 275 4075 / 4075
Balance 925 / 925 -235 / -235 240 / 240
[2023-10-05 11:00] VITALS: BP 105/58
--- NOTE | 2023-10-05 14:07 | W.PN.PUL3 ---
Today's Communication / Plan
-
Atb
Aspiration precautions
O2 therapy and maintain SpO2 >88%
PT/OT
Assessment
-
Patient is a 72 year old male with past medical history of chronic dysphagia, recurrent left pneumothorax, COPD and seizure disorder who presents with fever. Patient was recently admitted to [facility] from 09/24-09/30 for pneumonia,
discharged with Augmentin. In ER, found to be hypotensive. CT showing more extensive L sided PNA with new cavitation compared to prior. We are consulted for eval.
Impression:
Large L sided cavitary PNA (BRICE)
Suspicion for chronic aspiration, anaerobic infection
Conditions present prior admission:
Recurrent left-sided secondary spontaneous pneumothorax (SSP): 2nd episode diagnosed at ER 12-07-22, L chest tube at ER.
First episode of left pneumothorax 09-15-22, L chest tube at ER on that day, removed 09-22-22.
S/p L thoracoscopy, mini-thoracotomy, wedge resection of right apex bleb, talc pleurodesis 12-16-22
Chronic masslike opacity in the left lower lobe based on CAT scan 09/2022.� Persistent on CT abdomen pelvis 12/01/2022.
Discharged from the hospital 12/01/2022: Urinary retention/constipation/mild acute exacerbation of COPD
History of multifocal pneumonia with Acinetobacter May 2020
Remote history of MEGAN infection s/p treatment 2011
Advanced COPD/emphysema: Airduo/ Albuterol HFA/DuoNeb/chronic Zithromax therapy/low-dose prednisone
FEV1 <30%
Follows [facility] Dr Salguero
Bronchiectasis
Chronic prednisone therapy
Former smoker
Pulmonary cachexia
TBI, cognitive impairment
Severe deconditioning
Seizure
GERD
OP
Chronic ambulatory dysfunction
R hip replacement
Allergy to ETB, levofloxacin
MRSA screening positive
Plan
Maintain SpO2>88-94% with supplemental O2
Secretion clearance interventions: Including Acapella device, incentive spirometry
Multiple CT scan abnormalities: Concerning for left upper lobe pneumonia, enlarged compared to prior CTA chest from 12/2022, however his LLL-masslike opacity has now decreased in size (15mm now compared to 19mm prior)
Aspiration PNA would be highly suspected given history
Sputum culture was not collected, may need diagnostic BAL if family accepts considering GOC (DNR) -would only consider this if patient deteriorates or fails to improve and he is clinically stable now with no need for BAL at this time
Blood cx so far negative
PCT mildly elevated
Fever noted at [place]
One event of fever since adm: 101.5F on 10-02
Continue Unasyn IV
Chronic dysphagia
ST eval in past reviewed
VSE reviewed, recs: DYS 5 diet with moderately thick liquids
Aspiration precautions
If ongoing, may need to consider alternate means of nutrition
Previously: Dr Chaney updated sister 10-01 on condition and possible need to consider alternative means for meals
He has two other siblings, another sister and brother who sometimes make decisions together
He is DNR, would not be unreasonable to start GOC discussions if not improving
Follow with [facility] upon d/c
Known to Dr Salguero
D/w RN at bedside
Pulmonary service will continue to briefly follow along.
Total time spent today was 50 minutes for this encounter. Time includes reviewing laboratory test/imaging results, reviewing pertinent medical records, obtaining and reviewing medical history, performing an appropriate exam, ordering medications,
tests and procedures. Time also includes documentation of this encounter, coordinating patient care and communicating with other healthcare professionals. Total time does not include separately billed tests performed on this date of service.
Diagnostic Data
CXR 10/05/2023: Severe emphysematous changes with superimposed left upper lobe consolidation, worse as compared with the prior study. Small bilateral pleural effusions. Unchanged nodular opacities over the left lower lung.
CT Chest 10/02/23: 1. Extensive cavitary pneumonia within the left upper lobe, significantly progressed compared to prior CT dated 12/31/2022. No evidence of significant left pleural effusion or empyema.
2. Severe emphysema diffusely, most pronounced within the upper lung zone on each side.
3. Tiny right pleural effusion, with right basilar subsegmental atelectasis.
4. Nodular opacities within the left lower lobe, measuring 1.8 cm in greatest dimension, slightly decreased in size compared to prior CT.
5. Small pericardial effusion.
6. Moderate coronary arterial calcification. Please correlate with symptoms of and risk factors for coronary artery disease, with further workup as clinically appropriate.
CT chest 12/31/22: Reviewed, showed progressive left upper lobe consolidation scarring versus pneumonia-postsurgical changes. Stable loculated pneumothorax on the left upper lung field versus cavitary lesion. Slight enlarged left lower lobe
pulmonary nodules infectious versus inflammatory versus malignant. Scattered bilateral solid noncalcified pulmonary nodules stable to a small to characterize. Small loculated left pleural effusion progressed. Severe bilateral emphysema.
VSE 07/10/23- Patient presents with mild oral and moderate-severe pharyngeal dysphagia. Patient had aspiration due to delayed/incomplete closure of the larynx which was silent (no cough) with thin liquids via cup (cleared with a cued cough) and
claritza/silent with mildly thick liquids via cup (which did not clear with a cued cough.) Patient had moderate vallecular retention with solids, minimally reduced with secondary swallows, and reduced to mild amounts with a moderately thick liquid
wash (but this was penetrated and did not clear upper laryngeal space.) See patient care note for further details.
Subjective Data
-
Date of Service:
Date of Service: October 05, 2023
Chief Complaint: Pulmonary Follow Up
Subjective:
Patient seen this early afternoon. He is on 2 L/min breathing comfortably. Poor historian but he says that he is coughing a lot. He has been afebrile since 10/03/2023. No acute events reported from overnight.
Review of Systems
General: Other (Unable to obtain as patient is a poor historian)
Objective Data
Data Reviewed
Vital Signs / I&O / Oxygen:
Vital Signs
Temp Pulse Resp BP Pulse Ox
98.0 F 87 16 105/58 96
10/05/23 07:00 10/05/23 11:55 10/05/23 11:55 10/05/23 11:00 10/05/23 11:55
Intake and Output
10/04/23 10/05/23 10/06/23
06:59 06:59 06:59
Intake Total 1200 / 1200 3840 / 3840 240 / 240
Output Total 275 / 275 4075 / 4075
Balance 925 / 925 -235 / -235 240 / 240
SaO2 96
Nasal Cannula flow liters per 2
minute
Physical Exam
General: Respiratory Distress (n) and Comfortable
HEENT: Normocephalic and Anicteric
Cardiovascular: S1-S2, JVD (n) and Peripheral Edema (n)
Respiratory: Wheeze (n), Crackles (Bilaterally), Rhonchi (negative), Accessory Resp Muscle Use (n) and Stridor (n)
GI: Soft, Non Distended and Non Tender
Neurology: Awake and Alert
Skin: Warm and Dry
Labs/Micro/Reports
Lab Data
10/05/23 06:59
10/03/23 04:47
Microbiology
10/02/23 12:41 Blood/Venous Blood Culture - Preliminary
No Growth in 72 hours- Final report to follow
10/02/23 12:33 Blood/Venous Blood Culture - Preliminary
No Growth in 72 hours- Final report to follow
10/02/23 15:07 Nasal Swab Influenza Types A & B (SHELL) - Final
Negative for Influenza A & B, NAAT
Negative results must be combined with clinical observations
and patient history.
Nucleic Acid Amplification test (NAAT)performed on the
[employer] platform.
[2023-10-05 15:00] VITALS: BP 107/58
--- NOTE | 2023-10-05 15:30 | CM ---
Addendum entered by Chanel Covarrubias 10/06/23 14:42:
[facility]
Report# [phone]

Addendum entered by Chanel Covarrubias 10/05/23 15:34:
TC to sister Rebekah, agrees with plan for back to [facility] when stable. Per sister patient is WC bound.
Original Note:
Patient seen bedside.
patient continues on IV anbx, o2 2l, Seth cath.
Plan: Back to [facility] when stable (no auth)
[2023-10-05] MEDS: LOVENOX 40 MG SC (17:40)
[2023-10-05] MEDS: FLOMAX 0.400000000000000022 MG PO (17:40)
[2023-10-05 19:40] VITALS: BP 112/56
[2023-10-05] MEDS: SINGULAIR 10 MG PO (20:41)
[2023-10-05 22:34] VITALS: BP 124/72
[2023-10-06 03:07] VITALS: BP 108/67
[2023-10-06] MEDS: PROTONIX 40 MG PO (05:24)
[2023-10-06] MEDS: DELTASONE 10 MG PO (05:24)
[2023-10-06] MEDS: LUMINAL 64.7999999999999972 MG PO ×2 (05:33→16:51)
[2023-10-06] MEDS: UNASYN IV ×2 (05:33→12:36)
[2023-10-06 06:00] VITALS: BMI 20.6
[2023-10-06 06:31] LABS: % Basophils 0.3 % (0-2); % Eosinophils 4.2 % (0-6); % Immature Granulocytes 0.3 % (0-0.5); % Lymphocytes 12.1 % (20.5-51.1); % Monocytes 13.1 % (1.7-9.3); Absolute Eosinophils 0.3 10^3/uL (0-0.7); Absolute Lymphocytes 0.8 10^3/uL (1.2-3.4); Absolute Monocytes 0.9 10^3/uL (0.1-0.6); Absolute Neutrophils 4.7 10^3/uL (1.4-6.5); Hematocrit 27.9 % (39.0-52.0); Hemoglobin 8.8 g/dL (13.0-18.0); Mean Corp Hgb Conc. 31.5 g/dL (33.0-37.0); Mean Corpuscular Hgb 28.5 pg (27.0-31.0); Mean Corpuscular Volume 90.3 fL (80.0-94.0); Mean Platelet Volume 9.3 fL (7.4-10.4); Nucleated Red Blood Cells % 0 % (-); Platelet Count 308 10^3/uL (130-400); Red Blood Cell Count 3.09 10^6/uL (4.70-6.10); Red Cell Dist. Width 16.3 % (11.5-14.5); White Blood Cell Count 6.7 10^3/uL (4.8-10.8)
[2023-10-06 06:57] LABS: Blood Urea Nitrogen 25 mg/dl (9-20); Calcium 8.9 mg/dl (8.4-10.2); Carbon Dioxide 39 mmol/L (22-30); Chloride 95 mmol/L (98-107); Estimated Creatinine Clearance 63 ml/min; Glucose 86 mg/dl (70-99); Sodium 139 mmol/L (135-145); eGFR > 60.00
[2023-10-06] MEDS: PULMICORT 0.5 MG INH ×2 (07:29→15:17)
[2023-10-06] MEDS: DUONEB 3 ML INH ×3 (07:29→15:16)
[2023-10-06 07:55] VITALS: BP 110/65
--- NOTE | 2023-10-06 08:23 | W.PN.HOSP.TC ---
Today's Communication/Plan
-
Change antibiotics to oral. Discharge planning in progress.
Assessment / Plan
Assessment / Plan
Gen-awake but not alert, NAD
HEENT-NC, AT, anicteric, clear oral mm
Neck-supple
CV-reg, no M, +S1/S2
Lungs-mild expiratory wheezing, Rales on the left side
Abd-soft, NT, ND
Ext-no edema
Musculoskeletal-no cyanosis, clubbing
Skin-warm and dry
Neuro-grossly non-focal
Psych-calm, cooperative
A/P:
Acute TME -suspect mental status back to baseline. Etiology TME possibly due to aspiration pneumonia, sepsis. Per CM no auth needed back to sn[facility]. Medically clear for discharge-->Discharge planning in progress.
Sepsis -presumably due to aspiration pneumonia. Stable now. White blood cell count improved. Blood cultures negative so far. Procalcitonin 0.26. Change IV Unasyn to oral Augmentin.
Recurrent aspiration pneumonia -due to dysphagia. CT chest with extensive cavitary pneumonia in the left upper lobe, progressed compared to prior CT in December. Now on IV Unasyn. Pulmonary following. Currently on 2 L nasal cannula oxygen, wean
down as able. Repeat chest x-ray yesterday reviewed. Appreciate pulmonary consult and follow-up and they feel no need for BAL.
Dysphagia -speech therapy evaluated, recommend pur�ed diet with honey thick liquids. Strict aspiration precautions.
COPD without exacerbation. On low-dose of steroids.
Chronic hypotension - on Midodrine.
Seizure disorder -on phenobarbital, check level pending.
TBI - wheelchair dependent.
Acute on chronic anemia -baseline hemoglobin 9 today. MCV normal. No evidence of bleeding. Stools are brown. Anemia labs reviewed.
DNR
Anticipated Discharge: Today
Subjective/Interval History
-
Date of Service: October 06, 2023
Patient with no new complaints. Remains afebrile.
Objective Data
-
Labs:
Laboratory Results
10/06/23
05:55
WBC 6.7
Hgb 8.8 L
Hct 27.9 L
Plt Count 308
Sodium 139
Potassium 4.0
Chloride 95 L
Carbon Dioxide 39 H
BUN 25 H
Creatinine 0.9
Glucose 86
Calcium 8.9
Vital Signs:
Vital Signs
Temp Pulse Resp BP Pulse Ox
98.1 F 96 16 110/65 98
10/06/23 07:55 10/06/23 07:55 10/06/23 07:55 10/06/23 07:55 10/06/23 07:55
I&O
10/05/23 10/06/23 10/07/23
06:59 06:59 06:59
Intake Total 3840 / 3840 440 / 440
Output Total 4075 / 4075 2550 / 2550
Balance -235 / -235 -2110 / -0
[2023-10-06 11:30] VITALS: BP 106/57
--- NOTE | 2023-10-06 12:19 | W.PN.PUL3 ---
Today's Communication / Plan
-
Atb to complete a 7 day course
Aspiration precautions
O2 therapy and maintain SpO2 >88%
Repeat CXR in 4-6 weeks to follow resolution/improvement of his BRICE pneumonia
Patient is being prepared for discharge back to his facility at [facility]. Pulmonary service will now sign off. Please reconsult if there are any additional questions/concerns, or if patient's respiratory status deteriorates.
Assessment
-
Patient is a 72 year old male with past medical history of chronic dysphagia, recurrent left pneumothorax, COPD and seizure disorder who presents with fever. Patient was recently admitted to [facility] from 09/24-09/30 for pneumonia,
discharged with Augmentin. In ER, found to be hypotensive. CT showing more extensive L sided PNA with new cavitation compared to prior. We are consulted for eval.
Impression:
Large L sided cavitary PNA (BRICE)
Suspicion for chronic aspiration, anaerobic infection
Conditions present prior admission:
Recurrent left-sided secondary spontaneous pneumothorax (SSP): 2nd episode diagnosed at ER 12-07-22, L chest tube at ER.
First episode of left pneumothorax 09-15-22, L chest tube at ER on that day, removed 09-22-22.
S/p L thoracoscopy, mini-thoracotomy, wedge resection of right apex bleb, talc pleurodesis 12-16-22
Chronic masslike opacity in the left lower lobe based on CAT scan 09/2022.� Persistent on CT abdomen pelvis 12/01/2022.
Discharged from the hospital 12/01/2022: Urinary retention/constipation/mild acute exacerbation of COPD
History of multifocal pneumonia with Acinetobacter May 2020
Remote history of MEGAN infection s/p treatment 2011
Advanced COPD/emphysema: Airduo/ Albuterol HFA/DuoNeb/chronic Zithromax therapy/low-dose prednisone
FEV1 <30%
Followed with Dr Salguero
Bronchiectasis
Chronic prednisone therapy
Former smoker
Pulmonary cachexia
TBI, cognitive impairment
Severe deconditioning
Seizure
GERD
OP
Chronic ambulatory dysfunction
R hip replacement
Allergy to ETB, levofloxacin
MRSA screening positive
Plan
Maintain SpO2>88-94% with supplemental O2
Secretion clearance interventions: Including Acapella device, incentive spirometry
Multiple CT scan abnormalities: Concerning for left upper lobe pneumonia, enlarged compared to prior CTA chest from 12/2022, however his LLL-masslike opacity has now decreased in size (15mm now compared to 19mm prior)
Aspiration PNA would be highly suspected given history
Sputum culture was not collected, may need diagnostic BAL if family accepts considering GOC (DNR) -would only consider this if patient deteriorates or fails to improve and he is clinically stable now with no need for BAL at this time
Blood cx so far negative
PCT mildly elevated (0.26)
Fever noted at [place]
One event of fever since adm: 101.5F on 10-02
Continue Abx --> changed Unasyn IV (started on 10/02 at 12PM) to Augmentin upon discharge and complete 7 day course of ABx; s/p 1 dose of vanc/Zosyn on 10/01
Chronic dysphagia
ST eval in past reviewed
VSE reviewed, recs: IDDSI level 4 diet with honey-thick liquids
Aspiration precautions
If ongoing, may need to consider alternate means of nutrition
Previously: Dr Chaney updated sister 10-01 on condition and possible need to consider alternative means for meals
He has two other siblings, another sister and brother who sometimes make decisions together
He is DNR, would not be unreasonable to start GOC discussions if not improving
Dr. Crum also updated sister today at bedside and answered all of her questions.
Follow with [facility] upon d/c
Known to Dr Salguero
D/w RN at bedside
Patient is being prepared for discharge back to his facility at [facility]. He will need repeat CXR in 4-6 weeks to follow resolution/improvement of his BRICE pneumonia. Pulmonary service will now sign off. Thank you for
allowing us to be involved in the care of this patient. Please reconsult if there are any additional questions/concerns, or if patient's respiratory status deteriorates.
Total time spent today was 35 minutes for this encounter. Time includes reviewing laboratory test/imaging results, reviewing pertinent medical records, obtaining and reviewing medical history, performing an appropriate exam, ordering medications,
tests and procedures. Time also includes documentation of this encounter, coordinating patient care and communicating with other healthcare professionals. Total time does not include separately billed tests performed on this date of service.
Diagnostic Data
CXR 10/05/2023: Severe emphysematous changes with superimposed left upper lobe consolidation, worse as compared with the prior study. Small bilateral pleural effusions. Unchanged nodular opacities over the left lower lung.
CT Chest 10/02/23: 1. Extensive cavitary pneumonia within the left upper lobe, significantly progressed compared to prior CT dated 12/31/2022. No evidence of significant left pleural effusion or empyema.
2. Severe emphysema diffusely, most pronounced within the upper lung zone on each side.
3. Tiny right pleural effusion, with right basilar subsegmental atelectasis.
4. Nodular opacities within the left lower lobe, measuring 1.8 cm in greatest dimension, slightly decreased in size compared to prior CT.
5. Small pericardial effusion.
6. Moderate coronary arterial calcification. Please correlate with symptoms of and risk factors for coronary artery disease, with further workup as clinically appropriate.
CT chest 12/31/22: Reviewed, showed progressive left upper lobe consolidation scarring versus pneumonia-postsurgical changes. Stable loculated pneumothorax on the left upper lung field versus cavitary lesion. Slight enlarged left lower lobe
pulmonary nodules infectious versus inflammatory versus malignant. Scattered bilateral solid noncalcified pulmonary nodules stable to a small to characterize. Small loculated left pleural effusion progressed. Severe bilateral emphysema.
VSE 07/10/23- Patient presents with mild oral and moderate-severe pharyngeal dysphagia. Patient had aspiration due to delayed/incomplete closure of the larynx which was silent (no cough) with thin liquids via cup (cleared with a cued cough) and
claritza/silent with mildly thick liquids via cup (which did not clear with a cued cough.) Patient had moderate vallecular retention with solids, minimally reduced with secondary swallows, and reduced to mild amounts with a moderately thick liquid
wash (but this was penetrated and did not clear upper laryngeal space.) See patient care note for further details.
Subjective Data
-
Date of Service:
Date of Service: October 06, 2023
Chief Complaint: Pulmonary Follow Up
Subjective:
Seen today at bedside. Sister at bedside as well. She is upset because the patient is going back to the nursing facility at [place] and she feels that she gets better care here at the hospital. I answered all of her questions. Patient is on 2
L/min breathing comfortably. He is eating his dinner. No acute events reported from overnight. Afebrile since 10/03/2023 at 7 PM.
Review of Systems
General: Other (Unable to obtain due to patient's clinical status/cognitive dysfunction)
Objective Data
Data Reviewed
Vital Signs / I&O / Oxygen:
Vital Signs
Temp Pulse Resp BP Pulse Ox
98.1 F 90 18 110/65 98
10/06/23 07:55 10/06/23 11:40 10/06/23 11:40 10/06/23 07:55 10/06/23 11:40
Intake and Output
10/05/23 10/06/23 10/07/23
06:59 06:59 06:59
Intake Total 3840 / 3840 440 / 440
Output Total 4075 / 4075 2550 / 2550
Balance -235 / -235 -2110 / -0
SaO2 98
Nasal Cannula flow liters per 2
minute
Physical Exam
General: Respiratory Distress (n) and Comfortable
HEENT: Normocephalic and Anicteric
Cardiovascular: S1-S2, JVD (n) and Peripheral Edema (n)
Respiratory: Wheeze (n), Crackles (Bilaterally), Rhonchi (negative), Accessory Resp Muscle Use (n) and Stridor (n)
GI: Soft, Non Distended and Non Tender
Neurology: Awake, Alert and Tremors (seen with movement in upper extremities)
Skin: Warm and Dry
Labs/Micro/Reports
Lab Data
10/06/23 05:55
10/06/23 05:55
Microbiology
10/02/23 12:41 Blood/Venous Blood Culture - Preliminary
No Growth in 72 hours- Final report to follow
10/02/23 12:33 Blood/Venous Blood Culture - Preliminary
No Growth in 72 hours- Final report to follow
[2023-10-06] MEDS: FLUSH (NSS) 1 FLUSH IV (12:51)
--- NOTE | 2023-10-06 12:51 | W.DCSUMMARY ---
Discharge Summary
Discharge Data
Date of Admission: 10/02/23
Date of Discharge: 10/06/23
-
Pending Results: No
Hospital Course
Patient is 72 years old male with history of recurrent left pneumothorax, chronic dysphagia, COPD, seizure disorder, presented to the hospital with fever associated with hypotension and hypoxia. Patient was found to have another episode of
recurrent pneumonia. He was treated with IV antibiotics. Pulmonary consulted. On his pulmonary images he had this cavitary lesion on the left upper lobe and pulmonary feels this is aspiration related. Blood cultures no growth. Further
evaluation will be pursued as outpatient if indicated and he will have pulmonary follow-up as outpatient. Otherwise, patient is hemodynamically stable and afebrile and will switch his IV antibiotics to oral. Pulmonary will arrange for follow-up
chest x-ray in about 4 to 6 weeks and will decide if he needs to have bronchoscopy as outpatient. Patient is going back to skilled rehab today.
Discharge duration: 37 minutes
Discharge Plan
-
Patient Disposition: Long-Term/SNF
Discharge Diagnosis/Procedures: Aspiration pneumonia. Acute on chronic left cavitary lesion in the left lung. Bronchiectasis. Advanced chronic obstructive pulmonary disease. Cognitive impairment.
Diet: Other diet
Additional Diets: Pur�ed diet (level 4).
Activity: As tolerated
Driving Restrictions: As prior to admission
Blood Work: Please PCP to order CBC, BMP within 1 week
Referrals:
Stanislav Salguero MD [Active] - in two to three weeks
Efrem Hernandez MD [Family Provider] - in less than 1 week
Prescriptions:
New
amoxicillin-pot clavulanate 875-125 mg Tablet
1 tab PO Q12 10 Days Qty: 20 0RF
Continued
alendronate 70 MG tablet
70 mg PO WE
budesonide 0.5 MG/2 ML suspension for nebulization
0.5 mg inhalation R BID@0600,1600
montelukast 10 MG tablet
10 mg PO DAILY@1999
gabapentin 100 mg Capsule
100 mg PO TID@0600,1400,2100
azithromycin 250 mg Tablet
250 mg PO MOWEFR@0600
ipratropium-albuterol 0.5 mg-3 mg(2.5 mg base)/3 mL Solution For Nebulization
3 ml INHALATION R QID
magnesium hydroxide [Milk of Magnesia] 400 mg/5 mL Suspension
30 ml PO DAILY PRN (Reason: if no BM x 3 days)
tamsulosin [Flomax] 0.4 mg Capsule
0.4 mg PO DAILY@1600
bisacodyl [Dulcolax (bisacodyl)] 10 mg Suppository
10 mg [place] DAILY PRN (Reason: if MOM ineffective)
Fleet Enema 19-7 gram/118 mL Enema
118 ml OK DAILYPRN PRN (Reason: if dulcolax supp ineffective)
fluticasone propionate 50 mcg/actuation [place],Suspension
2 spray INTRANASAL DAILY@0600
zinc oxide 10 % Cream
1 applic TOPICAL DAILY
acetaminophen 325 mg tablet
650 mg PO Q6HPRN MDD 3000 mg PRN (Reason: mild pain/temp>100)
phenobarbital 64.8 MG tablet
64.8 mg PO BID@0600,1600
prednisone 10 mg Tablet
10 mg PO DAILY@0600
loratadine 10 mg Tablet,Disintegrating
10 mg PO DAILY@0600
meloxicam 7.5 mg Tablet
7.5 mg PO DAILY@0600
midodrine 10 mg Tablet
10 mg PO TID
Patient Comments:
10/02/2023, hold if SBP>120.
Saccharomyces boulardii [Probiotic (S.boulardii)] 250 mg Capsule
250 mg PO DAILY@1600
pantoprazole [Protonix] 40 mg tablet,delayed release (DR/EC)
40 mg PO DAILY@0600
Discontinued
amoxicillin-pot clavulanate 875-125 mg Tablet
1 tab PO BID@0600,1600
Rx Instructions:
10/02/2023, give 1 tablet BID for 5 days; start date: 10/02/2023; end date: 10/07/2023.
Discharge Orders:
Discharge Patient (As Directed); Ordered 10/06/23
Ordered By: David Farris
Discharge Date and Time
Discharge Date/Time: 10/06/23 20:18
Print Language: KHMER
[2023-10-06] MEDS: AUGMENTIN 875 MG/125 MG 1 TABLET PO (13:47)
--- NOTE | 2023-10-06 14:37 | CM ---
Patient seen bedside.
Patient for transfer back to [facility] today.
IMM reviewed verbally with patient, unable to sign.
Patients sister updated re d/c. She will be in prior to transfer.
Plan: [facility] today via ambulance 6:30 pm
[2023-10-06 15:14] VITALS: BP 114/52
[2023-10-06] MEDS: FLOMAX 0.400000000000000022 MG PO (16:51)
[2023-10-06 19:38] VITALS: BP 114/56
[2023-10-06] MEDS: DUONEB INH (20:19)
== END 2023-10-06 20:18 | DRG 871 ==
LOC: 4 WEST ACU 15:17
PROVIDERS: Emergency Medicine; Physician Assistant Medical; ADMITTING PHYSICIAN Hospitalist; ATTENDING PHYSICIAN Hospitalist; CONSULT PHYSICIAN Internal Medicine; EMERGENCY PHYSICIAN Emergency Medicine; FAMILY PHYSICIAN Internal Medicine
DX: A41.89 Other specified sepsis (principal); G92.8 Other toxic encephalopathy; J69.0 Pneumonitis due to inhalation of food and vomit; J44.0 Chronic obstructive pulmonary disease with (acute) lower respiratory infection; J93.12 Secondary spontaneous pneumothorax; F17.200 Nicotine dependence, unspecified, uncomplicated; Z66 Do not resuscitate; I95.89 Other hypotension; G40.909 Epilepsy, unspecified, not intractable, without status epilepticus; Z11.52 Encounter for screening for COVID-19
CPT/HCPCS: 70450; 71045; 71046; 71260; 80048; 80053; 80184; 80306; 81003; 82607; 82728; 82746; 82805; 83540; 83550; 83605; 83735; 84145; 85025; 85027; 85045; 87040; 87502; 87811; 92610; 93005; 94640; 96361; 96365; 96375; 99291; Q9967

== ENCOUNTER 2024-08-20 15:53 | Emergency (ER) | payer MEDICARE, OTHER, SELFPAY ==
[2024-08-20] VITALS (12 sets, daily range): BP systolic 72–111; BP diastolic 45–76
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
[2024-08-20] MEDS: NSS 2000 IV (16:30)
[2024-08-20 16:42] LABS: ALT (SGPT) 44 U/L (0-50); AST (SGOT) 63 U/L (17-59); Albumin 3.3 g/dl (3.5-5.0); Alkaline Phosphatase 306 U/L (38-126); Blood Urea Nitrogen 29 mg/dl (9-20); Calcium 9.3 mg/dl (8.4-10.2); Carbon Dioxide 29 mmol/L (22-30); Chloride 99 mmol/L (98-107); Glucose 115 mg/dl (70-99); Potassium 4.2 mmol/L (3.5-5.1); Sodium 138 mmol/L (135-145); Total Bilirubin 0.8 mg/dl (0.2-1.3); eGFR > 60.00
[2024-08-20 17:01] LABS: % Basophils 0.3 % (0-2); % Eosinophils 0.2 % (0-6); % Immature Granulocytes 0.6 % (0-0.5); % Lymphocytes 5.7 % (20.5-51.1); % Monocytes 8.5 % (1.7-9.3); % Neutrophils 84.7 % (42.2-75.2); Absolute Immature Granulocytes 0.1 10^3/uL (0-0.05); Absolute Lymphocytes 0.7 10^3/uL (1.2-3.4); Absolute Neutrophils 10.3 10^3/uL (1.4-6.5); Hematocrit 24.6 % (39.0-52.0); Hemoglobin 8.2 g/dL (13.0-18.0); Mean Corp Hgb Conc. 33.3 g/dL (33.0-37.0); Mean Corpuscular Hgb 27.5 pg (27.0-31.0); Mean Corpuscular Volume 82.6 fL (80.0-94.0); Mean Platelet Volume 10.5 fL (7.4-10.4); Nucleated Red Blood Cells % 0 % (-); Platelet Count 201 10^3/uL (130-400); Red Blood Cell Count 2.98 10^6/uL (4.70-6.10); Red Cell Dist. Width 15.5 % (11.5-14.5); White Blood Cell Count 12.2 10^3/uL (4.8-10.8)
[2024-08-20 17:13] LABS: Lactic Acid 2.5 mmol/L (0.7-2.0)
[2024-08-20 18:03] LABS: Urine Albumin 2+ (Neg - Trace); Urine Bilirubin 1+ (Negative); Urine Character Clear (Clear); Urine Color Amber; Urine Glucose Negative (Negative); Urine Ketone Negative (Negative); Urine Leukocyte 1+ (Negative); Urine Nitrite Negative (Negative); Urine Occult Blood Negative (Negative); Urine Specific Gravity 1.015 (<1.030); Urine Urobilinogen 3+ (Neg - 1+)
[2024-08-20 18:25] LABS: Urine Squamous Cell 0-2 /LPF (Few)
[2024-08-20 18:26] LABS: Urine Calcium Oxalate Crystals Seen; Urine Granular Cast 0-2 /LPF (0); Urine Hyaline Cast 0-2 /LPF (0-2)
[2024-08-20 18:28] LABS: Urine Bacteria Few (Negative); Urine White Cell 0-2 /HPF (0-5)
[2024-08-20] MEDS: MAXIPIME 1000 MG IV (19:44)
[2024-08-21] VITALS: BP 104/51
== END 2024-08-21 00:40 ==
LOC: EMR 15:53
PROVIDERS: EMERGENCY PHYSICIAN Emergency Medicine; FAMILY PHYSICIAN Internal Medicine
DX: J18.9 Pneumonia, unspecified organism (principal); J44.0 Chronic obstructive pulmonary disease with (acute) lower respiratory infection; K21.9 Gastro-esophageal reflux disease without esophagitis; E78.00 Pure hypercholesterolemia, unspecified; F17.200 Nicotine dependence, unspecified, uncomplicated; Z87.442 Personal history of urinary calculi; Z99.3 Dependence on wheelchair
CPT/HCPCS: 99284; 96374; 96361; 70450; 71046; 74176; 80053; 81003; 81015; 83605; 85025; 87040; 87086; 87502